=== PATIENT | female | born 1990 | race Caucasian/White ===

== ENCOUNTER 2016-02-10 00:30 | Emergency (ER) | payer OTHER ==
[~2016-02-10 00:30] MED LIST: IBUP600T26 PO; VICO5TAB PO
--- NOTE | 2016-02-10 02:58 | EDDOCDS ---
Nurse's Notes [facility] Name: Jillian Reyes Age: 25 yrs Sex: Female : 1990 Arrival Date: 02/10/2016 Time: 00:30 Bed I3 / M3 Private MD: Carlos Palencia M. Diagnosis: Contusion of lower back and pelvis Presentation: 02/09 00:35 Presenting complaint: Patient states: she was carrying laundry downstairs legs felt cz weak and pt fell injuring right hip. Adult Sepsis Screening: The patient does not have new or worsening altered mentation. Patient's respiratory rate is less than 22. Systolic blood pressure is greater than 100. Patient has a qSOFA score of 0- Negative Sepsis Screen. Suicide/Homicide risk assessment- the patient denies having any suicidal and/or homicidal ideations and does not present with any other emotional, behavioral or mental health complaints. 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 Transition of care: patient was not received from another setting of care. 00:35 Acuity: BK Level 4 cz 00:35 Method Of Arrival: Walkin/Carried/Asstd cz Triage Assessment: 00:38 General: Appears uncomfortable. Pain: Location: right hip Pain currently is 7 out of 10 cz on a pain scale. HIV screening NA for this visit Offered previously. 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 Cymbalta 60 mg Oral cpDR once daily 2. trazodone 50 mg Oral tab nightly 3. lorazepam 1 mg Oral tab once daily 4. control 5. gabapentin 300 mg Oral tab every 8 hours - PMHx: Anxiety; Depression; Migraine Headaches; - PSHx: ; - Social history: Smoking status: Patient uses tobacco products, light tobacco smoker. No barriers to communication noted, The patient speaks fluent Honduran, Speaks appropriately for age. - Family history: Not pertinent. - : The pt / caregiver states he / she is not on anticoagulants. Home medication list is obtained from the patient. - Exposure Risk Screening:: None identified. Screenin:07 Screening information is obtained from the patient. Fall risk: No risks identified. lf1 Assistance ADL's: requires no assistance with activities of daily living. Abuse/DV Screen: The patient / caregiver reports he/she is: not in a situation that causes fear, pain or injury. Nutritional screening: No deficits noted. Advance Directives: Currently, there is no health care proxy. home support is adequate. Assessment: 02:07 General: Appears in no apparent distress, comfortable, Behavior is cooperative. Pain: lf1 Location: pelvis and right hip Pain currently is 7 out of 10 on a pain scale. Neurological: Level of Consciousness is awake, alert, Oriented to person, place, time. Neurological: Reports weakness. EENT: No deficits noted. Respiratory: Respiratory effort is even, unlabored. GI: Denies nausea, vomiting. Derm: Skin is normal. Musculoskeletal: Range of motion Reports pain in right leg and pelvis. Injury Description: pt fell. 02:10 General: Pt reports recent increase in Cymbalta, states about 1 week after increase and lf1 increasing frequency of Trazadone for sleep she began to have increased feelings of "spaghettiness" in her legs. 02:52 General: Appears in no apparent distress, comfortable, Behavior is cooperative. lf1 General: Pt ambulated from department without difficulty or assistance. Pain: Location: right leg Pain currently is 6 out of 10 on a pain scale. Neurological: Level of Consciousness is awake, alert. EENT: No deficits noted. Cardiovascular: No deficits noted. Respiratory: Respiratory effort is even, unlabored. GI: Denies nausea, vomiting. Derm: Skin is normal. Vital Signs: 00:38 BP 135 / 85; Pulse 96; Resp 16; Temp 99(T); Pulse Ox 96% ; Weight 87.54 kg; Height 5 cz ft. 2 in. (157.48 cm); 02:20 BP 130 / 81; Pulse 78; Resp 16; Temp 98.2(TE); Pulse Ox 98% on R/A; Pain 6/10; lf1 00:38 Body Mass Index 35.30 (87.54 kg, 157.48 cm) Vitals: 00:38 Log In Time: February 10, 2016 at 00:31. ED Course: 00:31 Patient visited by Christina Reyez. [facility] 00:31 Carlos Palencia is Private Physician. [facility] 00:31 Patient moved to Waiting lja 00:33 Patient moved to Triage 1 cz 00:36 Triage Initiated cz 00:40 Patient moved to MTA Wait cz 01:30 Patient moved to I3 / M3 cln 02:07 The patient / caregiver is instructed regarding the plan of care and ED course. lf1 02:20 No IV's were initiated during this patient's visit. No procedures done that require lf1 assistance. 02:38 Higinio Vera PA is PHCP. mo1 02:38 Barry Martínez MD is Attending Physician. mo1 02:46 Patient visited by Higinio Vera PA. mo1 02:46 Carlos Palencia is Referral Physician. mo1 02:56 [facility] Payment Agreement was scanned into [employer] and attached to record. hs2 Order Results: There are currently no results for this order. Outcome: 02:20 Discharge Assessment: Patient awake, alert and oriented x 3. No cognitive and/or lf1 functional deficits noted. Patient verbalized understanding of disposition instructions. Patient awake and alert. Oriented to person, place and time. Patient verbalized understanding of disposition instructions. Patient has no functional deficits. patient administered narcotics - no. The following High Risk Discharge criteria are identified: None. Discharged to home ambulatory. Condition: unchanged. Discharge instructions given to patient, Instructed on discharge instructions, follow up and referral plans. medication usage, Demonstrated understanding of instructions, medications, Pt was receptive of discharge instructions/ teaching. No special radiology studies were completed. Property :Personal belongings accompany Pt. 02:46 Discharge ordered by Provider. mo1 02:57 Patient left the ED. lf1 Signatures: Zechariah Lucia RN RN cz Ford, Lisa, RN RN lf1 Higinio Vera PA PA mo1 Christina Reyez Hillary, Reg Reg hs2 Brittny, Dana, MAT ROLLER MAT ROLLER cln MTDD
--- NOTE | 2016-02-10 02:58 | EDDOCDS ---
Physician Documentation [facility] Name: Jillian Reyes Age: 25 yrs Sex: Female : 1990 Arrival Date: 02/10/2016 Time: 00:30 Bed I3 / M3 Private MD: Carlos Palencia M. Disposition: 02/10/16 02:46 Discharged to Home/Self Care. Impression: Contusion of lower back and pelvis. - Condition is Stable. - Discharge Instructions: Back Pain, Adult, Contusion. - Medication Reconciliation, Local Pharmacy Hours form. - Follow up: Carlos Palencia; When: Call to arrange an appointment; Reason: Recheck today's complaints, Continuance of care. - Problem is new. - Symptoms are unchanged. Historical: - Allergies: Latex; - Home Meds: 1. Cymbalta 60 mg Oral cpDR once daily 2. trazodone 50 mg Oral tab nightly 3. lorazepam 1 mg Oral tab once daily 4. control 5. gabapentin 300 mg Oral tab every 8 hours - PMHx: Anxiety; Depression; Migraine Headaches; - PSHx: ; - Social history: Smoking status: Patient uses tobacco products, light tobacco smoker. No barriers to communication noted, The patient speaks fluent Hebrew, Speaks appropriately for age. - Family history: Not pertinent. - : The pt / caregiver states he / she is not on anticoagulants. Home medication list is obtained from the patient. - Exposure Risk Screening:: None identified. 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 2 in. (157.48 cm); 02:20 BP 130 / 81; Pulse 78; Resp 16; Temp 98.2(TE); Pulse Ox 98% on R/A; Pain 6/10; lf1 00:38 Body Mass Index 35.30 (87.54 kg, 157.48 cm) cz MDM: 02:55 Financial registration complete. hs2 02:56 [facility] Payment Agreement was scanned into [email or web address] and attached to record. hs2 Signatures: Zechariah Lucia RN RN cz Zabala,Christina,RN RN lf1 Higinio Vera PA PA mo1 Tierney Alan, Reg Reg hs2 The chart was reviewed and I authenticate all verbal orders and agree with the evaluation and treatment provided.Attachments: 02:56 [facility] Payment Agreement hs2 SAWYERD
--- NOTE | 2016-02-12 03:58 | EDDOCDS ---
Nurse's Notes [facility] Name: Jillian Reyes Age: 25 yrs Sex: Female : 1990 Arrival Date: 02/10/2016 Time: 00:30 Bed I3 / M3 Private MD: Carlos Palencia M. Diagnosis: Contusion of lower back and pelvis Presentation: 02/09 00:35 Presenting complaint: Patient states: she was carrying laundry downstairs legs felt cz weak and pt fell injuring right hip. Adult Sepsis Screening: The patient does not have new or worsening altered mentation. Patient's respiratory rate is less than 22. Systolic blood pressure is greater than 100. Patient has a qSOFA score of 0- Negative Sepsis Screen. Suicide/Homicide risk assessment- the patient denies having any suicidal and/or homicidal ideations and does not present with any other emotional, behavioral or mental health complaints. Status: Patient is not a director water and waste services or dependent. Transition of care: patient was not received from another setting of care. 00:35 Acuity: BK Level 4 cz 00:35 Method Of Arrival: Walkin/Carried/Asstd cz Triage Assessment: 00:38 General: Appears uncomfortable. Pain: Location: right hip Pain currently is 7 out of 10 cz on a pain scale. HIV screening NA for this visit Offered previously. 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 Cymbalta 60 mg Oral cpDR once daily 2. trazodone 50 mg Oral tab nightly 3. lorazepam 1 mg Oral tab once daily 4. control 5. gabapentin 300 mg Oral tab every 8 hours - PMHx: Anxiety; Depression; Migraine Headaches; - PSHx: ; - Social history: Smoking status: Patient uses tobacco products, light tobacco smoker. No barriers to communication noted, The patient speaks fluent Tuvaluan, Speaks appropriately for age. - Family history: Not pertinent. - : The pt / caregiver states he / she is not on anticoagulants. Home medication list is obtained from the patient. - Exposure Risk Screening:: None identified. Screenin:07 Screening information is obtained from the patient. Fall risk: No risks identified. lf1 Assistance ADL's: requires no assistance with activities of daily living. Abuse/DV Screen: The patient / caregiver reports he/she is: not in a situation that causes fear, pain or injury. Nutritional screening: No deficits noted. Advance Directives: Currently, there is no health care proxy. home support is adequate. Assessment: 02:07 General: Appears in no apparent distress, comfortable, Behavior is cooperative. Pain: lf1 Location: pelvis and right hip Pain currently is 7 out of 10 on a pain scale. Neurological: Level of Consciousness is awake, alert, Oriented to person, place, time. Neurological: Reports weakness. EENT: No deficits noted. Respiratory: Respiratory effort is even, unlabored. GI: Denies nausea, vomiting. Derm: Skin is normal. Musculoskeletal: Range of motion Reports pain in right leg and pelvis. Injury Description: pt fell. 02:10 General: Pt reports recent increase in Cymbalta, states about 1 week after increase and lf1 increasing frequency of Trazadone for sleep she began to have increased feelings of "spaghettiness" in her legs. 02:52 General: Appears in no apparent distress, comfortable, Behavior is cooperative. lf1 General: Pt ambulated from department without difficulty or assistance. Pain: Location: right leg Pain currently is 6 out of 10 on a pain scale. Neurological: Level of Consciousness is awake, alert. EENT: No deficits noted. Cardiovascular: No deficits noted. Respiratory: Respiratory effort is even, unlabored. GI: Denies nausea, vomiting. Derm: Skin is normal. Vital Signs: 00:38 BP 135 / 85; Pulse 96; Resp 16; Temp 99(T); Pulse Ox 96% ; Weight 87.54 kg; Height 5 cz ft. 2 in. (157.48 cm); 02:20 BP 130 / 81; Pulse 78; Resp 16; Temp 98.2(TE); Pulse Ox 98% on R/A; Pain 6/10; lf1 00:38 Body Mass Index 35.30 (87.54 kg, 157.48 cm) Vitals: 00:38 Log In Time: February 10, 2016 at 00:31. ED Course: 00:31 Patient visited by Christina Reyez. [facility] 00:31 Carlos Palencia is Private Physician. [facility] 00:31 Patient moved to Waiting lja 00:33 Patient moved to Triage 1 cz 00:36 Triage Initiated cz 00:40 Patient moved to MTA Wait cz 01:30 Patient moved to I3 / M3 cln 02:07 The patient / caregiver is instructed regarding the plan of care and ED course. lf1 02:20 No IV's were initiated during this patient's visit. No procedures done that require lf1 assistance. 02:38 Higinio Vera PA is PHCP. mo1 02:38 Barry Martínez MD is Attending Physician. mo1 02:46 Patient visited by Higinio Vera PA. mo1 02:46 Carlos Palencia is Referral Physician. mo1 02:56 [facility] Payment Agreement was scanned into [employer] and attached to record. hs2 07:32 T-Sheet-- Draft Copy was scanned into [employer] and attached to record. gb Order Results: There are currently no results for this order. Outcome: 02:20 Discharge Assessment: Patient awake, alert and oriented x 3. No cognitive and/or lf1 functional deficits noted. Patient verbalized understanding of disposition instructions. Patient awake and alert. Oriented to person, place and time. Patient verbalized understanding of disposition instructions. Patient has no functional deficits. patient administered narcotics - no. The following High Risk Discharge criteria are identified: None. Discharged to home ambulatory. Condition: unchanged. Discharge instructions given to patient, Instructed on discharge instructions, follow up and referral plans. medication usage, Demonstrated understanding of instructions, medications, Pt was receptive of discharge instructions/ teaching. No special radiology studies were completed. Property :Personal belongings accompany Pt. 02:46 Discharge ordered by Provider. mo1 02:57 Patient left the ED. lf1 Signatures: Zechariah Lucia RN RN cz Adriana Sanchez, Reg Reg gb Christina Zabala RN RN lf1 Higinio Vera PA PA mo1 Christina Reyez Hillary, Reg Reg hs2 Brittny, Dana, ORGAN TEACHER ORGAN TEACHER cln Chart Complete MTDD
--- NOTE | 2016-02-12 03:58 | EDDOCDS ---
Physician Documentation [facility] Name: Jillian Reyes Age: 25 yrs Sex: Female : 1990 Arrival Date: 02/10/2016 Time: 00:30 Bed I3 / M3 Private MD: Carlos Palencia M. Disposition: 02/10/16 02:46 Discharged to Home/Self Care. Impression: Contusion of lower back and pelvis. - Condition is Stable. - Discharge Instructions: Back Pain, Adult, Contusion. - Medication Reconciliation, Local Pharmacy Hours form. - Follow up: Carlos Palencia; When: Call to arrange an appointment; Reason: Recheck today's complaints, Continuance of care. - Problem is new. - Symptoms are unchanged. Historical: - Allergies: Latex; - Home Meds: 1. Cymbalta 60 mg Oral cpDR once daily 2. trazodone 50 mg Oral tab nightly 3. lorazepam 1 mg Oral tab once daily 4. control 5. gabapentin 300 mg Oral tab every 8 hours - PMHx: Anxiety; Depression; Migraine Headaches; - PSHx: ; - Social history: Smoking status: Patient uses tobacco products, light tobacco smoker. No barriers to communication noted, The patient speaks fluent Kazakh, Speaks appropriately for age. - Family history: Not pertinent. - : The pt / caregiver states he / she is not on anticoagulants. Home medication list is obtained from the patient. - Exposure Risk Screening:: None identified. 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 2 in. (157.48 cm); 02:20 BP 130 / 81; Pulse 78; Resp 16; Temp 98.2(TE); Pulse Ox 98% on R/A; Pain 6/10; lf1 00:38 Body Mass Index 35.30 (87.54 kg, 157.48 cm) cz MDM: 02:55 Financial registration complete. hs2 02:56 [facility] Payment Agreement was scanned into [employer] and attached to record. hs2 07:32 T-Sheet-- Draft Copy was scanned into [employer] and attached to record. gb Signatures: Zechariah Lucia, RN RN cz Adriana Sanchez, Reg Reg gb Christina Zabala RN RN lf1 Higinio Vera PA PA mo1 Tierney Alan, Reg Reg hs2 The chart was reviewed and I authenticate all verbal orders and agree with the evaluation and treatment provided.Attachments: 02:56 [facility] Payment Agreement hs2 07:32 T-Sheet-- Draft Copy gb Chart Complete MTDD
--- NOTE | 2016-02-12 03:58 | EDDOCDS ---
Physician Documentation [facility] Name: Jillian Reyes Age: 25 yrs Sex: Female : 1990 Arrival Date: 02/10/2016 Time: 00:30 Bed I3 / M3 Private MD: Carlos Palencia M. Disposition: 02/10/16 02:46 Discharged to Home/Self Care. Impression: Contusion of lower back and pelvis. - Condition is Stable. - Discharge Instructions: Back Pain, Adult, Contusion. - Medication Reconciliation, Local Pharmacy Hours form. - Follow up: Carlos Palencia; When: Call to arrange an appointment; Reason: Recheck today's complaints, Continuance of care. - Problem is new. - Symptoms are unchanged. Historical: - Allergies: Latex; - Home Meds: 1. Cymbalta 60 mg Oral cpDR once daily 2. trazodone 50 mg Oral tab nightly 3. lorazepam 1 mg Oral tab once daily 4. control 5. gabapentin 300 mg Oral tab every 8 hours - PMHx: Anxiety; Depression; Migraine Headaches; - PSHx: ; - Social history: Smoking status: Patient uses tobacco products, light tobacco smoker. No barriers to communication noted, The patient speaks fluent Turkish, Speaks appropriately for age. - Family history: Not pertinent. - : The pt / caregiver states he / she is not on anticoagulants. Home medication list is obtained from the patient. - Exposure Risk Screening:: None identified. 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 2 in. (157.48 cm); 02:20 BP 130 / 81; Pulse 78; Resp 16; Temp 98.2(TE); Pulse Ox 98% on R/A; Pain 6/10; lf1 00:38 Body Mass Index 35.30 (87.54 kg, 157.48 cm) cz MDM: 02:55 Financial registration complete. hs2 02:56 [facility] Payment Agreement was scanned into [employer] and attached to record. hs2 07:32 T-Sheet-- Draft Copy was scanned into [employer] and attached to record. gb Signatures: Zechariah Lucia, RN RN cz Adriana Sanchez, Reg Reg gb Christina Zabala RN RN lf1 Higinio Vera PA PA mo1 Tierney Alan, Reg Reg hs2 The chart was reviewed and I authenticate all verbal orders and agree with the evaluation and treatment provided.Attachments: 02:56 [facility] Payment Agreement hs2 07:32 T-Sheet-- Draft Copy gb Chart Complete MTDD
== END 2016-02-10 02:57 | disposition home or self-care (01) ==
LOC: M ED 00:30
DX: S30.0XXA Contusion of lower back and pelvis, initial encounter (principal); W10.9XXA Fall (on) (from) unspecified stairs and steps, initial encounter; Y92.019 Unspecified place in single-family (private) house as the place of occurrence of the external cause; Y93.89 Activity, other specified; Y99.8 Other external cause status; F41.9 Anxiety disorder, unspecified; F32.9 Major depressive disorder, single episode, unspecified; G43.909 Migraine, unspecified, not intractable, without status migrainosus; F17.210 Nicotine dependence, cigarettes, uncomplicated; Z79.3 Long term (current) use of hormonal contraceptives; Z79.899 Other long term (current) drug therapy; Z91.040 Latex allergy status

== ENCOUNTER 2016-02-20 22:00 | Emergency (ER) | payer OTHER ==
[2016-02-20] MEDS ORDERED: traMADol 50 MG TAB As Ordered ONE (23:25)
--- NOTE | 2016-02-20 23:37 | EDDOCDS ---
Physician Documentation [facility] Name: Jillian Reyes Age: 25 yrs Sex: Female : 1990 Arrival Date: 02/20/2016 Time: 22:00 Bed Triage 1 Private MD: BARNEY Weiner Disposition: 02/20/16 23:30 Discharged to Home/Self Care. Impression: Low back pain, Radiculopathy, lumbosacral region. - Condition is Stable. - Discharge Instructions: Back Pain, Adult, Lumbosacral Radiculopathy. - Prescriptions for Tramadol 50 mg Oral Tablet - take 1 tablet by ORAL route 4 times per day As needed MDD: 4 tabs; 20 tablet. - Medication Reconciliation, Local Pharmacy Hours form. - Follow up: BARNEY Weiner; When: Call to arrange an appointment; Reason: Recheck today's complaints, Continuance of care. - Problem is an acute exacerbation. - Symptoms are unchanged. Historical: - Allergies: Latex; - Home Meds: 1. control 2. Cymbalta 60 mg Oral cpDR once daily 3. gabapentin 300 mg Oral tab every 8 hours 4. lorazepam 1 mg Oral tab once daily 5. trazodone 50 mg Oral tab nightly - PMHx: Anxiety; Depression; Migraine Headaches; - PSHx: ; - Social history: Smoking status: Patient uses tobacco products, heavy tobacco smoker. No barriers to communication noted, The patient speaks fluent Sami, Speaks appropriately for age. - Family history: Not pertinent. - : The pt / caregiver states he / she is not on anticoagulants. Home medication list is obtained from the patient. - Exposure Risk Screening:: None identified. 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 2 in. (157.48 cm) (R); 23:35 BP 143 / 88; Pulse 76; Resp 18; Temp 97.6; Pulse Ox 98% on R/A; Pain 3/10; jmb 22:01 Body Mass Index 35.30 (87.54 kg, 157.48 cm) dd6 MDM: 23:24 traMADol 50 mg PO once ordered. mo1 Administered Medications: 23:23 CANCELLED (Other Intervention Used): Gabapentin 300 mg PO once mo1 23:26 Drug: traMADol 50 mg [tramadol 50 mg tablet (1 tabs)] Route: PO; jarrod Signatures: Higinio Vera PA PA mo1 Godwin Holman RN RN jarrod The chart was reviewed and I authenticate all verbal orders and agree with the evaluation and treatment provided.Corrections: (The following items were deleted from the chart) 23:23 23:23 Gabapentin 300 mg PO once ordered. mo1 mo1 MTDD
--- NOTE | 2016-02-20 23:37 | EDDOCDS ---
Nurse's Notes [facility] Name: Jillian Reyes Age: 25 yrs Sex: Female : 1990 Arrival Date: 02/20/2016 Time: 22:00 Bed Triage 1 Private MD: BARNEY Weiner Diagnosis: Low back pain;Radiculopathy, lumbosacral region Presentation: 02/19 22:03 Presenting complaint: Patient states: Patient reports that has issues with nerves and jmb currently working with provider to address. Patient stated that her legs feel like they are being crushed by a truck. Acute neurological deficits are not present. Mechanism of Injury: No Mechanism of Injury. Adult Sepsis Screening: Patient's respiratory rate is less than 22. Systolic blood pressure is greater than 100. Patient has a qSOFA score of 0- Negative Sepsis Screen. Suicide/Homicide risk assessment- the patient denies having any suicidal and/or homicidal ideations and does not present with any other emotional, behavioral or mental health complaints. Status: Patient is not a electronic video games servicer or dependent. Transition of care: patient was not received from another setting of care. 22:03 Acuity: BK Level 4 b 22:03 Method Of Arrival: Walkin/Carried/Asstd b 22:05 Presenting complaint: Patient texting on cell phone whole time during triage. [facility] Triage Assessment: 22:04 General: Appears in no apparent distress, Behavior is appropriate for age, cooperative. b Pain: Location: right leg and left leg Pain currently is 8 out of 10 on a pain scale. HIV screening NA for this visit Offered previously. Neurological: Level of Consciousness is awake, alert, obeys commands, Oriented to person, place, time, Speech is normal, Facial symmetry appears normal, Facial symmetry: tongue is midline. Respiratory: Airway is patent Respiratory effort is even, unlabored, Respiratory pattern is regular, symmetrical. Derm: Skin is pink, warm & dry. Musculoskeletal: Range of motion intact in all extremities. 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 control 2. Cymbalta 60 mg Oral cpDR once daily 3. gabapentin 300 mg Oral tab every 8 hours 4. lorazepam 1 mg Oral tab once daily 5. trazodone 50 mg Oral tab nightly - PMHx: Anxiety; Depression; Migraine Headaches; - PSHx: ; - Social history: Smoking status: Patient uses tobacco products, heavy tobacco smoker. No barriers to communication noted, The patient speaks fluent Turkish, Speaks appropriately for age. - Family history: Not pertinent. - : The pt / caregiver states he / she is not on anticoagulants. Home medication list is obtained from the patient. - Exposure Risk Screening:: None identified. Screenin:32 Screening information is obtained from the patient. Fall risk: No risks identified. jmb Assistance ADL's: requires no assistance with activities of daily living. Abuse/DV Screen: The patient / caregiver reports he/she is: not in a situation that causes fear, pain or injury. Nutritional screening: No deficits noted. Advance Directives: Currently, there is no health care proxy. There is no active DNR order. There is no living will. There is no Power of 3Rd Mate. home support is adequate. Assessment: 23:32 General: Patient instructed on discharge instructions. Patient asked if there were any b questions regarding discharge, patient stated no. Patient signed discharge instructions. Patient discharged in stable condition. . Vital Signs: 22:01 BP 162 / 92; Pulse 101; Resp 18; Temp 97.3(O); Pulse Ox 100% on R/A; Weight 87.54 kg dd6 (R); Height 5 ft. 2 in. (157.48 cm) (R); 23:35 BP 143 / 88; Pulse 76; Resp 18; Temp 97.6; Pulse Ox 98% on R/A; Pain 3/10; jmb 22:01 Body Mass Index 35.30 (87.54 kg, 157.48 cm) dd6 Vitals: 22:01 Log In Time: February 20, 2016 at 21:58. dd6 ED Course: 22:01 Patient visited by Tomy Kimball PCA. dd6 22:01 BARNEY Weiner is Private Physician. dd6 22:01 Patient moved to Waiting dd6 22:02 Patient moved to Pre RCE dd6 22:04 Triage Initiated jmb 23:09 Higinio Vera PA is PHCP. mo1 23:09 Elie Bocanegra DO is Attending Physician. mo1 23:09 Patient moved to Triage 1 jmb 23:13 Patient visited by Higinio Vera PA. mo1 23:29 Husam [facility] is Referral Physician. mo1 23:32 The patient / caregiver is instructed regarding the plan of care and ED course. jmb 23:32 No IV's were initiated during this patient's visit. No procedures done that require jmb assistance. Administered Medications: 23:23 CANCELLED (Other Intervention Used): Gabapentin 300 mg PO once mo1 23:26 Drug: traMADol 50 mg [tramadol 50 mg tablet (1 tabs)] Route: PO; jmb Order Results: There are currently no results for this order. Outcome: 23:30 Discharge ordered by Provider. mo1 23:32 Discharge Assessment: Patient awake, alert and oriented x 3. No cognitive and/or jmb functional deficits noted. Patient verbalized understanding of disposition instructions. Patient awake and alert. obeys commands, Oriented to person, place and time. Patient verbalized understanding of disposition instructions. Patient has no functional deficits. patient administered narcotics - no. The following High Risk Discharge criteria are identified: None. Discharged to home ambulatory. Condition: stable. Discharge instructions given to patient, Instructed on discharge instructions, follow up and referral plans. medication usage, Demonstrated understanding of instructions, medications, Pt was receptive of discharge instructions/ teaching. Prescriptions given X 1. No special radiology studies were completed. Property sent home with patient. 23:36 Patient left the ED. jarrod Signatures: Tomy Kimball, STAFF AIR TACTICAL OFFICER STAFF AIR TACTICAL OFFICER dd6 Higinio Vera PA PA mo1 Godwin Holman,RN RN jarrod MTDD
--- NOTE | 2016-02-23 00:37 | EDDOCDS ---
Physician Documentation [facility] Name: Jillian Reyes Age: 25 yrs Sex: Female : 1990 Arrival Date: 02/20/2016 Time: 22:00 Bed Triage 1 Private MD: BARNEY Weiner Disposition: 02/20/16 23:30 Discharged to Home/Self Care. Impression: Low back pain, Radiculopathy, lumbosacral region. - Condition is Stable. - Discharge Instructions: Back Pain, Adult, Lumbosacral Radiculopathy. - Prescriptions for Tramadol 50 mg Oral Tablet - take 1 tablet by ORAL route 4 times per day As needed MDD: 4 tabs; 20 tablet. - Medication Reconciliation, Local Pharmacy Hours form. - Follow up: BARNEY Weiner; When: Call to arrange an appointment; Reason: Recheck today's complaints, Continuance of care. - Problem is an acute exacerbation. - Symptoms are unchanged. Historical: - Allergies: Latex; - Home Meds: 1. control 2. Cymbalta 60 mg Oral cpDR once daily 3. gabapentin 300 mg Oral tab every 8 hours 4. lorazepam 1 mg Oral tab once daily 5. trazodone 50 mg Oral tab nightly - PMHx: Anxiety; Depression; Migraine Headaches; - PSHx: ; - Social history: Smoking status: Patient uses tobacco products, heavy tobacco smoker. No barriers to communication noted, The patient speaks fluent Belarusian, Speaks appropriately for age. - Family history: Not pertinent. - : The pt / caregiver states he / she is not on anticoagulants. Home medication list is obtained from the patient. - Exposure Risk Screening:: None identified. 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 2 in. (157.48 cm) (R); 23:35 BP 143 / 88; Pulse 76; Resp 18; Temp 97.6; Pulse Ox 98% on R/A; Pain 3/10; jmb 22:01 Body Mass Index 35.30 (87.54 kg, 157.48 cm) dd6 MDM: 23:24 traMADol 50 mg PO once ordered. mo1 23:39 Financial registration complete. zo 23:40 [facility] Payment Agreement was scanned into [employer] and attached to record. zo 02/20 09:26 T-Sheet-- Draft Copy was scanned into [employer] and attached to record. gb Administered Medications: 02/19 23:23 CANCELLED (Other Intervention Used): Gabapentin 300 mg PO once mo1 23:26 Drug: traMADol 50 mg [tramadol 50 mg tablet (1 tabs)] Route: PO; tanyab Signatures: Adriana Sanchez, Reg Reg darline Mosqueda, Higinio Rosario PA PA mo1 Godwin Holman RN RN jarrod The chart was reviewed and I authenticate all verbal orders and agree with the evaluation and treatment provided.Corrections: (The following items were deleted from the chart) 23:23 23:23 Gabapentin 300 mg PO once ordered. mo1 mo1 Attachments: 23:40 [facility] Payment Agreement zo 02/20 09:26 T-Sheet-- Draft Copy gb Chart Complete MTDD
--- NOTE | 2016-02-23 00:37 | EDDOCDS ---
Physician Documentation [facility] Name: Jillian Reyes Age: 25 yrs Sex: Female : 1990 Arrival Date: 02/20/2016 Time: 22:00 Bed Triage 1 Private MD: BARNEY Weiner Disposition: 02/20/16 23:30 Discharged to Home/Self Care. Impression: Low back pain, Radiculopathy, lumbosacral region. - Condition is Stable. - Discharge Instructions: Back Pain, Adult, Lumbosacral Radiculopathy. - Prescriptions for Tramadol 50 mg Oral Tablet - take 1 tablet by ORAL route 4 times per day As needed MDD: 4 tabs; 20 tablet. - Medication Reconciliation, Local Pharmacy Hours form. - Follow up: BARNEY Weiner; When: Call to arrange an appointment; Reason: Recheck today's complaints, Continuance of care. - Problem is an acute exacerbation. - Symptoms are unchanged. Historical: - Allergies: Latex; - Home Meds: 1. control 2. Cymbalta 60 mg Oral cpDR once daily 3. gabapentin 300 mg Oral tab every 8 hours 4. lorazepam 1 mg Oral tab once daily 5. trazodone 50 mg Oral tab nightly - PMHx: Anxiety; Depression; Migraine Headaches; - PSHx: ; - Social history: Smoking status: Patient uses tobacco products, heavy tobacco smoker. No barriers to communication noted, The patient speaks fluent Korean, Speaks appropriately for age. - Family history: Not pertinent. - : The pt / caregiver states he / she is not on anticoagulants. Home medication list is obtained from the patient. - Exposure Risk Screening:: None identified. 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 2 in. (157.48 cm) (R); 23:35 BP 143 / 88; Pulse 76; Resp 18; Temp 97.6; Pulse Ox 98% on R/A; Pain 3/10; jmb 22:01 Body Mass Index 35.30 (87.54 kg, 157.48 cm) dd6 MDM: 23:24 traMADol 50 mg PO once ordered. mo1 23:39 Financial registration complete. zo 23:40 [facility] Payment Agreement was scanned into [employer] and attached to record. zo 02/20 09:26 T-Sheet-- Draft Copy was scanned into [employer] and attached to record. gb Administered Medications: 02/19 23:23 CANCELLED (Other Intervention Used): Gabapentin 300 mg PO once mo1 23:26 Drug: traMADol 50 mg [tramadol 50 mg tablet (1 tabs)] Route: PO; tanyab Signatures: Adriana Sanchez, Reg Reg darline Mosqueda, Higinio Rosario PA PA mo1 Godwin Holman RN RN jarrod The chart was reviewed and I authenticate all verbal orders and agree with the evaluation and treatment provided.Corrections: (The following items were deleted from the chart) 23:23 23:23 Gabapentin 300 mg PO once ordered. mo1 mo1 Attachments: 23:40 [facility] Payment Agreement zo 02/20 09:26 T-Sheet-- Draft Copy gb Chart Complete MTDD
--- NOTE | 2016-02-23 00:37 | EDDOCDS ---
Nurse's Notes [facility] Name: Jillian Reyes Age: 25 yrs Sex: Female : 1990 Arrival Date: 02/20/2016 Time: 22:00 Bed Triage 1 Private MD: BARNEY Weiner Diagnosis: Low back pain;Radiculopathy, lumbosacral region Presentation: 02/19 22:03 Presenting complaint: Patient states: Patient reports that has issues with nerves and jmb currently working with provider to address. Patient stated that her legs feel like they are being crushed by a truck. Acute neurological deficits are not present. Mechanism of Injury: No Mechanism of Injury. Adult Sepsis Screening: Patient's respiratory rate is less than 22. Systolic blood pressure is greater than 100. Patient has a qSOFA score of 0- Negative Sepsis Screen. Suicide/Homicide risk assessment- the patient denies having any suicidal and/or homicidal ideations and does not present with any other emotional, behavioral or mental health complaints. Status: Patient is not a room service waiter or dependent. Transition of care: patient was not received from another setting of care. 22:03 Acuity: BK Level 4 b 22:03 Method Of Arrival: Walkin/Carried/Asstd b 22:05 Presenting complaint: Patient texting on cell phone whole time during triage. [id number] Triage Assessment: 22:04 General: Appears in no apparent distress, Behavior is appropriate for age, cooperative. b Pain: Location: right leg and left leg Pain currently is 8 out of 10 on a pain scale. HIV screening NA for this visit Offered previously. Neurological: Level of Consciousness is awake, alert, obeys commands, Oriented to person, place, time, Speech is normal, Facial symmetry appears normal, Facial symmetry: tongue is midline. Respiratory: Airway is patent Respiratory effort is even, unlabored, Respiratory pattern is regular, symmetrical. Derm: Skin is pink, warm & dry. Musculoskeletal: Range of motion intact in all extremities. 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 control 2. Cymbalta 60 mg Oral cpDR once daily 3. gabapentin 300 mg Oral tab every 8 hours 4. lorazepam 1 mg Oral tab once daily 5. trazodone 50 mg Oral tab nightly - PMHx: Anxiety; Depression; Migraine Headaches; - PSHx: ; - Social history: Smoking status: Patient uses tobacco products, heavy tobacco smoker. No barriers to communication noted, The patient speaks fluent Amharic, Speaks appropriately for age. - Family history: Not pertinent. - : The pt / caregiver states he / she is not on anticoagulants. Home medication list is obtained from the patient. - Exposure Risk Screening:: None identified. Screenin:32 Screening information is obtained from the patient. Fall risk: No risks identified. jmb Assistance ADL's: requires no assistance with activities of daily living. Abuse/DV Screen: The patient / caregiver reports he/she is: not in a situation that causes fear, pain or injury. Nutritional screening: No deficits noted. Advance Directives: Currently, there is no health care proxy. There is no active DNR order. There is no living will. There is no Power of Scale And Skip Car Operator. home support is adequate. Assessment: 23:32 General: Patient instructed on discharge instructions. Patient asked if there were any b questions regarding discharge, patient stated no. Patient signed discharge instructions. Patient discharged in stable condition. . Vital Signs: 22:01 BP 162 / 92; Pulse 101; Resp 18; Temp 97.3(O); Pulse Ox 100% on R/A; Weight 87.54 kg dd6 (R); Height 5 ft. 2 in. (157.48 cm) (R); 23:35 BP 143 / 88; Pulse 76; Resp 18; Temp 97.6; Pulse Ox 98% on R/A; Pain 3/10; jmb 22:01 Body Mass Index 35.30 (87.54 kg, 157.48 cm) dd6 Vitals: 22:01 Log In Time: February 20, 2016 at 21:58. dd6 ED Course: 22:01 Patient visited by Tomy Kimball PCA. dd6 22:01 BARNEY Weiner is Private Physician. dd6 22:01 Patient moved to Waiting dd6 22:02 Patient moved to Pre RCE dd6 22:04 Triage Initiated jmb 23:09 Higinio Vera PA is PHCP. mo1 23:09 Elie Bocanegra DO is Attending Physician. mo1 23:09 Patient moved to Triage 1 jmb 23:13 Patient visited by Higinio Vera PA. mo1 23:29 Husam [facility] is Referral Physician. mo1 23:32 The patient / caregiver is instructed regarding the plan of care and ED course. jmb 23:32 No IV's were initiated during this patient's visit. No procedures done that require jmb assistance. 23:40 [facility] Payment Agreement was scanned into [employer] ( [employer] ) and attached to record. zo 02/20 09:26 T-Sheet-- Draft Copy was scanned into [employer] ( [employer] ) and attached to record. gb Administered Medications: 02/19 23:23 CANCELLED (Other Intervention Used): Gabapentin 300 mg PO once mo1 23:26 Drug: traMADol 50 mg [tramadol 50 mg tablet (1 tabs)] Route: PO; jmb Order Results: There are currently no results for this order. Outcome: 23:30 Discharge ordered by Provider. mo1 23:32 Discharge Assessment: Patient awake, alert and oriented x 3. No cognitive and/or jmb functional deficits noted. Patient verbalized understanding of disposition instructions. Patient awake and alert. obeys commands, Oriented to person, place and time. Patient verbalized understanding of disposition instructions. Patient has no functional deficits. patient administered narcotics - no. The following High Risk Discharge criteria are identified: None. Discharged to home ambulatory. Condition: stable. Discharge instructions given to patient, Instructed on discharge instructions, follow up and referral plans. medication usage, Demonstrated understanding of instructions, medications, Pt was receptive of discharge instructions/ teaching. Prescriptions given X 1. No special radiology studies were completed. Property sent home with patient. 23:36 Patient left the ED. jmb Signatures: Adriana Sanchez, Reg Reg gb Franklin, Tomy Cleary, PAEDIATRIC PHYSIOTHERAPIST PAEDIATRIC PHYSIOTHERAPIST dd6 Higinio Vera PA PA mo1 Godwin Holman,RN RN jarrod Chart Complete MTDD
== END 2016-02-20 23:36 | disposition home or self-care (01) ==
LOC: M ED 22:00
DX: M54.17 Radiculopathy, lumbosacral region (principal); F41.9 Anxiety disorder, unspecified; F32.9 Major depressive disorder, single episode, unspecified; G43.909 Migraine, unspecified, not intractable, without status migrainosus; F17.210 Nicotine dependence, cigarettes, uncomplicated; Z79.3 Long term (current) use of hormonal contraceptives; Z79.899 Other long term (current) drug therapy; Z91.040 Latex allergy status

== ENCOUNTER → 2016-03-02 | Outpatient (CLI) | payer OTHER ==
--- NOTE | 2016-03-03 08:34 | REP ---
MRI LUMBAR SPINE WITHOUT CONTRAST: HISTORY: Back and bilateral leg pain. There is no disc bulge or herniation at the L1-2 through L5-S1 levels. The nerves exit the neural foramina without compression. The conus medullaris is normal in appearance terminating at the level of the L1-2 intervertebral disc. Normal signal intensity is present in the lumbar intervertebral discs and vertebral bodies. IMPRESSION: There is no disc bulge or herniation. Signed by Suman Koroma MD 03/03/2016 08:41 A
== END ==
LOC: M RAD 17:57
PROVIDERS: ATTEND Family Medicine
DX: R29.898 Other symptoms and signs involving the musculoskeletal system (principal)

== ENCOUNTER 2016-03-10 18:44 | Emergency (ER) | payer OTHER ==
[2016-03-10] MEDS ORDERED: METOCLOPRAMIDE INJ 10MG/2ML VIAL (J2765) As Ordered ONE (19:23)
[2016-03-10] MEDS ORDERED: KETOROLAC 30 MG/ML VIAL (J1885) As Ordered ONE (19:23)
[2016-03-10] MEDS ORDERED: diphenhydrAMINE INJ 50MG/ML VIAL (J1200) As Ordered ONE (19:23)
--- NOTE | 2016-03-10 23:31 | EDDOCDS ---
Nurse's Notes [facility] Name: Jillian Reyes Age: 25 yrs Sex: Female : 1990 Arrival Date: 03/10/2016 Time: 18:44 Bed 13 Private MD: Carlos Palencia M. Diagnosis: Migraine without aura, not intractable Presentation: 03/10 18:51 Presenting complaint: Patient states: Migraine BURCH with history of the same. Took jo3 Tylenol and Motrin at home and just keeps getting worse. tried caffeine as well. This patient has no additional risk factors. Adult Sepsis Screening: The patient does not have new or worsening altered mentation. Patient's respiratory rate is less than 22. Systolic blood pressure is greater than 100. Patient has a qSOFA score of 0- Negative Sepsis Screen. Suicide/Homicide risk assessment- the patient denies having any suicidal and/or homicidal ideations and does not present with any other emotional, behavioral or mental health complaints. 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 Transition of care: patient was not received from another setting of care. 18:51 Acuity: BK Level 3 jo3 18:51 Method Of Arrival: Walkin/Carried/Asstd jo3 Triage Assessment: 18:54 Headache History: This patient has a history of headaches and the character of this jo3 headache is like all previous headaches. General: Appears in no apparent distress, Behavior is appropriate for age, cooperative. Pain: Pain currently is 9 out of 10 on a pain scale. HIV screening NA for this visit Offered previously. 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 gabapentin 300 mg Oral tab every 8 hours 2. Cymbalta 60 mg Oral cpDR once daily - PMHx: Anxiety; Depression; Migraine Headaches; - PSHx: ; Tubal ligation; - Social history: Smoking status: Patient uses tobacco products, light tobacco smoker. No barriers to communication noted, The patient speaks fluent Welsh, Speaks appropriately for age. - Family history: Not pertinent. - : The pt / caregiver states he / she is not on anticoagulants. Home medication list is obtained from the patient. - Exposure Risk Screening:: None identified. Screenin:48 Screening information is obtained from the patient. Fall risk: No risks identified. jp6 Assistance ADL's: requires no assistance with activities of daily living. Abuse/DV Screen: The patient / caregiver reports he/she is: not in a situation that causes fear, pain or injury. Nutritional screening: No deficits noted. Advance Directives: Currently, there is no health care proxy. There is no active DNR order. There is no living will. home support is adequate. Assessment: 19:48 Reassessment: Patient appears in no apparent distress at this time. Patient states jp6 symptoms have not improved. General: Appears in no apparent distress, well developed, well nourished, Behavior is appropriate for age, cooperative, pleasant. Pain: Location: face Pain currently is 9 out of 10 on a pain scale. Neurological: Level of Consciousness is awake, alert, Oriented to person, place, time. EENT: No deficits noted. Cardiovascular: No deficits noted. Capillary refill < 3 seconds Heart tones S1 S2 present. Respiratory: No deficits noted. Airway is patent Respiratory effort is even, unlabored, Respiratory pattern is regular, symmetrical, Breath sounds are clear bilaterally. GI: No deficits noted. : No deficits noted. Derm: No deficits noted. Skin is pink, warm & dry. Musculoskeletal: No deficits noted. 21:11 Reassessment: Patient appears in no apparent distress at this time. Patient states jp6 symptoms have improved. General: Appears in no apparent distress, comfortable. Pain: Location: face Pain currently is 2 out of 10 on a pain scale. Neurological: Level of Consciousness is awake, alert, Oriented to person, place, time. Respiratory: Airway is patent Respiratory effort is even, unlabored, Respiratory pattern is regular, symmetrical. Derm: Skin is pink, warm & dry. 22:00 Reassessment: Patient appears in no apparent distress at this time. Patient states jp6 symptoms have improved. Pain: Denies pain. 23:00 Reassessment: Patient appears in no apparent distress at this time. Patient states jp6 symptoms have improved. Pain: Denies pain. Neurological: No deficits noted. Cardiovascular: Capillary refill < 3 seconds. Respiratory: Airway is patent Respiratory effort is even, unlabored, Respiratory pattern is regular, symmetrical. Derm: Skin is pink, warm & dry. Vital Signs: 18:45 BP 147 / 86; Pulse 77; Resp 18 S; Temp 98.3(O); Pulse Ox 100% on R/A; Weight 86.18 kg gr2 (R); Height 5 ft. 2 in. (157.48 cm) (R); Pain 10/10; 21:12 Pain 2/10; jp6 21:12 Pain 2/10; jp6 22:19 BP 113 / 69; Pulse 66; Resp 16; Temp 97.5(O); Pulse Ox 98% on R/A; Pain 0/10; jp6 18:45 Body Mass Index 34.75 (86.18 kg, 157.48 cm) gr2 Vitals: 18:45 Log In Time: March 10, 2016 at 18:45. gr2 ED Course: 18:45 Patient visited by Yadi Echeverria. gr2 18:45 Carlos Palencia is Private Physician. gr2 18:45 Patient moved to Waiting gr2 18:46 Patient visited by Yadi Echeverria. gr2 18:46 Patient moved to Pre RCE gr2 18:53 Triage Initiated jo3 18:54 Patient visited by Ella Malone RN. jo3 19:10 Patient moved to 13 jf3 19:11 Wang Burton DO is Attending Physician. mm11 19:11 Patient visited by Wang Burton DO. mm11 19:19 Patient visited by Wang Burton DO. mm11 19:20 Lana SalazarRN is Primary Nurse. jp6 19:48 The patient / caregiver is instructed regarding the plan of care and ED course. jp6 19:48 Inserted saline lock: 20 gauge in right hand. jp6 20:20 Patient visited by Lana Salazar RN. jp6 20:32 [facility] Payment Agreement was scanned into [employer] and attached to record. zo 21:26 Patient visited by Lana Salazar RN. jp6 22:32 Patient visited by Lana Salazar RN. jp6 23:00 Discontinued lock intact, bleeding controlled, pressure dressing applied, No jp6 redness/swelling at site. No procedures done that require assistance. Administered Medications: 19:45 Drug: ketorolac 30 mg [ketorolac 30 mg/mL (1 mL) injection solution (1 mL)] Route: IVP; jp6 Site: right hand; 21:12 Follow up: Pain 2/10 Adult jp6 19:45 Drug: Metoclopramide 10 mg [metoclopramide 5 mg/mL injection solution] Route: IV; Rate: jp6 40 mg/hr; Infused Over: 15 mins; Site: right hand; 21:13 Follow up: Response: Nausea is resolved jp6 19:45 Drug: diphenhydrAMINE 25 mg [diphenhydramine 50 mg/mL injection solution (0.5 mL)] jp6 Route: IVP; Site: right hand; 21:12 Follow up: Pain 2/10 Adult jp6 19:45 Drug: NS 0.9% 1000 ml [sodium chloride 0.9 % intravenous solution] Route: IV; Rate: jp6 bolus; Site: right hand; 21:12 Follow up: IV Status: Completed infusion; IV Intake: 1000ml jp6 Intake: 21:12 IV: 1000.00ml; Total: 1000.00ml. jp6 Order Results: There are currently no results for this order. Outcome: 22:54 Discharge ordered by Provider. mm11 23:00 Discharge Assessment: Patient awake, alert and oriented x 3. No cognitive and/or jp6 functional deficits noted. Patient verbalized understanding of disposition instructions. patient administered narcotics - no. The following High Risk Discharge criteria are identified: None. Discharged to home ambulatory. Condition: improved. Discharge instructions given to patient, Instructed on discharge instructions, follow up and referral plans. Demonstrated understanding of instructions, Pt was receptive of discharge instructions/ teaching. No special radiology studies were completed. Property sent home with patient. 23:30 Patient left the ED. jp6 Signatures: Ella Malone RN RN Navneet Lujan Matthew, DO DO mm11 Yadi Echeverria gr2 Fredo Jackson RN RN jackie3 Lana Salazar RN RN jp6 MTDD
--- NOTE | 2016-03-10 23:31 | EDDOCDS ---
Physician Documentation [facility] Name: Jillian Reyes Age: 25 yrs Sex: Female : 1990 Arrival Date: 03/10/2016 Time: 18:44 Bed 13 Private MD: Carlos Palencia M. Disposition: 03/10/16 22:54 Discharged to Home/Self Care. Impression: Migraine without aura, not intractable. - Condition is Stable. - Discharge Instructions: Migraine Headache. - Medication Reconciliation, Local Pharmacy Hours form. - Follow up: Private Physician; When: As needed; Reason: Continuance of care. - Problem is an acute exacerbation. - Symptoms have improved. - Notes: FOLLOW UP WITH NEUROLOGY IN [place] PREVIOUSLY ARRANGED Historical: - Allergies: Latex; Tramadol HCl; spiders; - Home Meds: 1. gabapentin 300 mg Oral tab every 8 hours 2. Cymbalta 60 mg Oral cpDR once daily - PMHx: Anxiety; Depression; Migraine Headaches; - PSHx: ; Tubal ligation; - Social history: Smoking status: Patient uses tobacco products, light tobacco smoker. No barriers to communication noted, The patient speaks fluent Nepali, Speaks appropriately for age. - Family history: Not pertinent. - : The pt / caregiver states he / she is not on anticoagulants. Home medication list is obtained from the patient. - Exposure Risk Screening:: None identified. [employer] P[employer]: 03/10 18:54 LMP 02/27/2016 jo3 Vital Signs: 18:45 BP 147 / 86; Pulse 77; Resp 18 S; Temp 98.3(O); Pulse Ox 100% on R/A; Weight 86.18 kg / gr2 189.99 lbs (R); Height 5 ft. 2 in. (157.48 cm) (R); Pain 10/10; 21:12 Pain 2/10; jp6 21:12 Pain 2/10; jp6 22:19 BP 113 / 69; Pulse 66; Resp 16; Temp 97.5(O); Pulse Ox 98% on R/A; Pain 0/10; jp6 18:45 Body Mass Index 34.75 (86.18 kg, 157.48 cm) gr2 MDM: 19:19 IV Saline Lock ordered. mm11 19:19 ketorolac 30 mg IVP once ordered. mm11 19:19 Metoclopramide 10 mg IV at 40 mg/hr once over 15 mins ordered. mm11 19:19 diphenhydrAMINE 25 mg IVP once ordered. mm11 19:19 NS 0.9% 1000 ml IV at bolus once ordered. mm11 19:49 Financial registration complete. zo 20:32 [facility] Payment Agreement was scanned into [employer] and attached to record. zo Administered Medications: 19:45 Drug: ketorolac 30 mg [ketorolac 30 mg/mL (1 mL) injection solution (1 mL)] Route: IVP; jp6 Site: right hand; 21:12 Follow up: Pain 2/10 Adult jp6 19:45 Drug: Metoclopramide 10 mg [metoclopramide 5 mg/mL injection solution] Route: IV; Rate: jp6 40 mg/hr; Infused Over: 15 mins; Site: right hand; 21:13 Follow up: Response: Nausea is resolved jp6 19:45 Drug: diphenhydrAMINE 25 mg [diphenhydramine 50 mg/mL injection solution (0.5 mL)] jp6 Route: IVP; Site: right hand; 21:12 Follow up: Pain 2/10 Adult jp6 19:45 Drug: NS 0.9% 1000 ml [sodium chloride 0.9 % intravenous solution] Route: IV; Rate: jp6 bolus; Site: right hand; 21:12 Follow up: IV Status: Completed infusion; IV Intake: 1000ml jp6 Signatures: Ella Malone RN RN Navneet Lujan Matthew, DO DO mm11 Lana Salazar RN RN jp6 The chart was reviewed and I authenticate all verbal orders and agree with the evaluation and treatment provided.Attachments: 20:32 [facility] Payment Agreement zo MTDD
--- NOTE | 2016-03-13 00:31 | EDDOCDS ---
Physician Documentation [facility] Name: Jillian Reyes Age: 25 yrs Sex: Female : 1990 Arrival Date: 03/10/2016 Time: 18:44 Bed 13 Private MD: Carlos Palencia M. Disposition: 03/10/16 22:54 Discharged to Home/Self Care. Impression: Migraine without aura, not intractable. - Condition is Stable. - Discharge Instructions: Migraine Headache. - Medication Reconciliation, Local Pharmacy Hours form. - Follow up: Private Physician; When: As needed; Reason: Continuance of care. - Problem is an acute exacerbation. - Symptoms have improved. - Notes: FOLLOW UP WITH NEUROLOGY IN [place] PREVIOUSLY ARRANGED Historical: - Allergies: Latex; Tramadol HCl; spiders; - Home Meds: 1. gabapentin 300 mg Oral tab every 8 hours 2. Cymbalta 60 mg Oral cpDR once daily - PMHx: Anxiety; Depression; Migraine Headaches; - PSHx: ; Tubal ligation; - Social history: Smoking status: Patient uses tobacco products, light tobacco smoker. No barriers to communication noted, The patient speaks fluent Maltese, Speaks appropriately for age. - Family history: Not pertinent. - : The pt / caregiver states he / she is not on anticoagulants. Home medication list is obtained from the patient. - Exposure Risk Screening:: None identified. 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 2 in. (157.48 cm) (R); Pain 10/10; 21:12 Pain 2/10; jp6 21:12 Pain 2/10; jp6 22:19 BP 113 / 69; Pulse 66; Resp 16; Temp 97.5(O); Pulse Ox 98% on R/A; Pain 0/10; jp6 18:45 Body Mass Index 34.75 (86.18 kg, 157.48 cm) gr2 MDM: 19:19 IV Saline Lock ordered. mm11 19:19 ketorolac 30 mg IVP once ordered. mm11 19:19 Metoclopramide 10 mg IV at 40 mg/hr once over 15 mins ordered. mm11 19:19 diphenhydrAMINE 25 mg IVP once ordered. mm11 19:19 NS 0.9% 1000 ml IV at bolus once ordered. mm11 19:49 Financial registration complete. zo 20:32 [facility] Payment Agreement was scanned into [employer] and attached to record. zo 03/11 11:32 T-Sheet-- Draft Copy was scanned into [employer] and attached to record. gb Administered Medications: 03/10 19:45 Drug: ketorolac 30 mg [ketorolac 30 mg/mL (1 mL) injection solution (1 mL)] Route: IVP; jp6 Site: right hand; 21:12 Follow up: Pain 2/10 Adult jp6 19:45 Drug: Metoclopramide 10 mg [metoclopramide 5 mg/mL injection solution] Route: IV; Rate: jp6 40 mg/hr; Infused Over: 15 mins; Site: right hand; 21:13 Follow up: Response: Nausea is resolved jp6 19:45 Drug: diphenhydrAMINE 25 mg [diphenhydramine 50 mg/mL injection solution (0.5 mL)] jp6 Route: IVP; Site: right hand; 21:12 Follow up: Pain 2/10 Adult jp6 19:45 Drug: NS 0.9% 1000 ml [sodium chloride 0.9 % intravenous solution] Route: IV; Rate: jp6 bolus; Site: right hand; 21:12 Follow up: IV Status: Completed infusion; IV Intake: 1000ml jp6 Signatures: Adriana Sanchez, Ella Fontanez,RN RN jo3 Navneet Mosqueda Matthew, DO DO mm11 Lana Salazar,RN RN jp6 The chart was reviewed and I authenticate all verbal orders and agree with the evaluation and treatment provided.Attachments: :32 [facility] Payment Agreement zo 03/11 11:32 T-Sheet-- Draft Copy gb Chart Complete MTDD
--- NOTE | 2016-03-13 00:31 | EDDOCDS ---
Physician Documentation [facility] Name: Jillian Reyes Age: 25 yrs Sex: Female : 1990 Arrival Date: 03/10/2016 Time: 18:44 Bed 13 Private MD: Carlos Palencia M. Disposition: 03/10/16 22:54 Discharged to Home/Self Care. Impression: Migraine without aura, not intractable. - Condition is Stable. - Discharge Instructions: Migraine Headache. - Medication Reconciliation, Local Pharmacy Hours form. - Follow up: Private Physician; When: As needed; Reason: Continuance of care. - Problem is an acute exacerbation. - Symptoms have improved. - Notes: FOLLOW UP WITH NEUROLOGY IN [place] PREVIOUSLY ARRANGED Historical: - Allergies: Latex; Tramadol HCl; spiders; - Home Meds: 1. gabapentin 300 mg Oral tab every 8 hours 2. Cymbalta 60 mg Oral cpDR once daily - PMHx: Anxiety; Depression; Migraine Headaches; - PSHx: ; Tubal ligation; - Social history: Smoking status: Patient uses tobacco products, light tobacco smoker. No barriers to communication noted, The patient speaks fluent Wolof, Speaks appropriately for age. - Family history: Not pertinent. - : The pt / caregiver states he / she is not on anticoagulants. Home medication list is obtained from the patient. - Exposure Risk Screening:: None identified. [employer]: 03/10 18:54 LMP 02/27/2016 jo3 Vital Signs: 18:45 BP 147 / 86; Pulse 77; Resp 18 S; Temp 98.3(O); Pulse Ox 100% on R/A; Weight 86.18 kg / gr2 189.99 lbs (R); Height 5 ft. 2 in. (157.48 cm) (R); Pain 10/10; 21:12 Pain 2/10; jp6 21:12 Pain 2/10; jp6 22:19 BP 113 / 69; Pulse 66; Resp 16; Temp 97.5(O); Pulse Ox 98% on R/A; Pain 0/10; jp6 18:45 Body Mass Index 34.75 (86.18 kg, 157.48 cm) gr2 MDM: 19:19 IV Saline Lock ordered. mm11 19:19 ketorolac 30 mg IVP once ordered. mm11 19:19 Metoclopramide 10 mg IV at 40 mg/hr once over 15 mins ordered. mm11 19:19 diphenhydrAMINE 25 mg IVP once ordered. mm11 19:19 NS 0.9% 1000 ml IV at bolus once ordered. mm11 19:49 Financial registration complete. zo 20:32 [facility] Payment Agreement was scanned into [employer] and attached to record. zo 03/11 11:32 T-Sheet-- Draft Copy was scanned into [employer] and attached to record. gb Administered Medications: 03/10 19:45 Drug: ketorolac 30 mg [ketorolac 30 mg/mL (1 mL) injection solution (1 mL)] Route: IVP; jp6 Site: right hand; 21:12 Follow up: Pain 2/10 Adult jp6 19:45 Drug: Metoclopramide 10 mg [metoclopramide 5 mg/mL injection solution] Route: IV; Rate: jp6 40 mg/hr; Infused Over: 15 mins; Site: right hand; 21:13 Follow up: Response: Nausea is resolved jp6 19:45 Drug: diphenhydrAMINE 25 mg [diphenhydramine 50 mg/mL injection solution (0.5 mL)] jp6 Route: IVP; Site: right hand; 21:12 Follow up: Pain 2/10 Adult jp6 19:45 Drug: NS 0.9% 1000 ml [sodium chloride 0.9 % intravenous solution] Route: IV; Rate: jp6 bolus; Site: right hand; 21:12 Follow up: IV Status: Completed infusion; IV Intake: 1000ml jp6 Signatures: Adriana Sanchez, Ella Fontanez,RN RN jo3 Navneet Mosqueda Matthew, DO DO mm11 Lana Salazar,RN RN jp6 The chart was reviewed and I authenticate all verbal orders and agree with the evaluation and treatment provided.Attachments: :32 [facility] Payment Agreement zo 03/11 11:32 T-Sheet-- Draft Copy gb Chart Complete MTDD
--- NOTE | 2016-03-13 00:31 | EDDOCDS ---
Nurse's Notes [facility] Name: Jillian Reyes Age: 25 yrs Sex: Female : 1990 Arrival Date: 03/10/2016 Time: 18:44 Bed 13 Private MD: Carlos Palencia M. Diagnosis: Migraine without aura, not intractable Presentation: 03/10 18:51 Presenting complaint: Patient states: Migraine BURCH with history of the same. Took jo3 Tylenol and Motrin at home and just keeps getting worse. tried caffeine as well. This patient has no additional risk factors. Adult Sepsis Screening: The patient does not have new or worsening altered mentation. Patient's respiratory rate is less than 22. Systolic blood pressure is greater than 100. Patient has a qSOFA score of 0- Negative Sepsis Screen. Suicide/Homicide risk assessment- the patient denies having any suicidal and/or homicidal ideations and does not present with any other emotional, behavioral or mental health complaints. Status: Patient is not a health services administrator or dependent. Transition of care: patient was not received from another setting of care. 18:51 Acuity: BK Level 3 jo3 18:51 Method Of Arrival: Walkin/Carried/Asstd jo3 Triage Assessment: 18:54 Headache History: This patient has a history of headaches and the character of this jo3 headache is like all previous headaches. General: Appears in no apparent distress, Behavior is appropriate for age, cooperative. Pain: Pain currently is 9 out of 10 on a pain scale. HIV screening NA for this visit Offered previously. 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 gabapentin 300 mg Oral tab every 8 hours 2. Cymbalta 60 mg Oral cpDR once daily - PMHx: Anxiety; Depression; Migraine Headaches; - PSHx: ; Tubal ligation; - Social history: Smoking status: Patient uses tobacco products, light tobacco smoker. No barriers to communication noted, The patient speaks fluent Nauruan, Speaks appropriately for age. - Family history: Not pertinent. - : The pt / caregiver states he / she is not on anticoagulants. Home medication list is obtained from the patient. - Exposure Risk Screening:: None identified. Screenin:48 Screening information is obtained from the patient. Fall risk: No risks identified. jp6 Assistance ADL's: requires no assistance with activities of daily living. Abuse/DV Screen: The patient / caregiver reports he/she is: not in a situation that causes fear, pain or injury. Nutritional screening: No deficits noted. Advance Directives: Currently, there is no health care proxy. There is no active DNR order. There is no living will. home support is adequate. Assessment: 19:48 Reassessment: Patient appears in no apparent distress at this time. Patient states jp6 symptoms have not improved. General: Appears in no apparent distress, well developed, well nourished, Behavior is appropriate for age, cooperative, pleasant. Pain: Location: face Pain currently is 9 out of 10 on a pain scale. Neurological: Level of Consciousness is awake, alert, Oriented to person, place, time. EENT: No deficits noted. Cardiovascular: No deficits noted. Capillary refill < 3 seconds Heart tones S1 S2 present. Respiratory: No deficits noted. Airway is patent Respiratory effort is even, unlabored, Respiratory pattern is regular, symmetrical, Breath sounds are clear bilaterally. GI: No deficits noted. : No deficits noted. Derm: No deficits noted. Skin is pink, warm & dry. Musculoskeletal: No deficits noted. 21:11 Reassessment: Patient appears in no apparent distress at this time. Patient states jp6 symptoms have improved. General: Appears in no apparent distress, comfortable. Pain: Location: face Pain currently is 2 out of 10 on a pain scale. Neurological: Level of Consciousness is awake, alert, Oriented to person, place, time. Respiratory: Airway is patent Respiratory effort is even, unlabored, Respiratory pattern is regular, symmetrical. Derm: Skin is pink, warm & dry. 22:00 Reassessment: Patient appears in no apparent distress at this time. Patient states jp6 symptoms have improved. Pain: Denies pain. 23:00 Reassessment: Patient appears in no apparent distress at this time. Patient states jp6 symptoms have improved. Pain: Denies pain. Neurological: No deficits noted. Cardiovascular: Capillary refill < 3 seconds. Respiratory: Airway is patent Respiratory effort is even, unlabored, Respiratory pattern is regular, symmetrical. Derm: Skin is pink, warm & dry. Vital Signs: 18:45 BP 147 / 86; Pulse 77; Resp 18 S; Temp 98.3(O); Pulse Ox 100% on R/A; Weight 86.18 kg gr2 (R); Height 5 ft. 2 in. (157.48 cm) (R); Pain 10/10; 21:12 Pain 2/10; jp6 21:12 Pain 2/10; jp6 22:19 BP 113 / 69; Pulse 66; Resp 16; Temp 97.5(O); Pulse Ox 98% on R/A; Pain 0/10; jp6 18:45 Body Mass Index 34.75 (86.18 kg, 157.48 cm) gr2 Vitals: 18:45 Log In Time: March 10, 2016 at 18:45. gr2 ED Course: 18:45 Patient visited by Yadi Echeverria. gr2 18:45 Carlos Palencia is Private Physician. gr2 18:45 Patient moved to Waiting gr2 18:46 Patient visited by Yadi Echeverria. gr2 18:46 Patient moved to Pre RCE gr2 18:53 Triage Initiated jo3 18:54 Patient visited by Ella Malone RN. jo3 19:10 Patient moved to 13 jf3 19:11 Wang Burton DO is Attending Physician. mm11 19:11 Patient visited by Wang Burton DO. mm11 19:19 Patient visited by Wang Burton DO. mm11 19:20 Lana Salazar,RN is Primary Nurse. jp6 19:48 The patient / caregiver is instructed regarding the plan of care and ED course. jp6 19:48 Inserted saline lock: 20 gauge in right hand. jp6 20:20 Patient visited by Lana Salazar RN. jp6 20:32 [facility] Payment Agreement was scanned into Dialog[employer] and attached to record. zo 21:26 Patient visited by Lana Salazar,EDUARD. jp6 22:32 Patient visited by Lana Salazar,EDUARD. jp6 23:00 Discontinued lock intact, bleeding controlled, pressure dressing applied, No jp6 redness/swelling at site. No procedures done that require assistance. 03/11 11:32 T-Sheet-- Draft Copy was scanned into Dialoggy and attached to record. gb Administered Medications: 03/10 19:45 Drug: ketorolac 30 mg [ketorolac 30 mg/mL (1 mL) injection solution (1 mL)] Route: IVP; jp6 Site: right hand; 21:12 Follow up: Pain 2/10 Adult jp6 19:45 Drug: Metoclopramide 10 mg [metoclopramide 5 mg/mL injection solution] Route: IV; Rate: jp6 40 mg/hr; Infused Over: 15 mins; Site: right hand; 21:13 Follow up: Response: Nausea is resolved jp6 19:45 Drug: diphenhydrAMINE 25 mg [diphenhydramine 50 mg/mL injection solution (0.5 mL)] jp6 Route: IVP; Site: right hand; 21:12 Follow up: Pain 2/10 Adult jp6 19:45 Drug: NS 0.9% 1000 ml [sodium chloride 0.9 % intravenous solution] Route: IV; Rate: jp6 bolus; Site: right hand; 21:12 Follow up: IV Status: Completed infusion; IV Intake: 1000ml jp6 Intake: 21:12 IV: 1000.00ml; Total: 1000.00ml. jp6 Order Results: There are currently no results for this order. Outcome: 22:54 Discharge ordered by Provider. mm11 23:00 Discharge Assessment: Patient awake, alert and oriented x 3. No cognitive and/or jp6 functional deficits noted. Patient verbalized understanding of disposition instructions. patient administered narcotics - no. The following High Risk Discharge criteria are identified: None. Discharged to home ambulatory. Condition: improved. Discharge instructions given to patient, Instructed on discharge instructions, follow up and referral plans. Demonstrated understanding of instructions, Pt was receptive of discharge instructions/ teaching. No special radiology studies were completed. Property sent home with patient. 23:30 Patient left the ED. jp6 Signatures: Adriana Sanchez, Christophe Reg gb Ella MaloneRN RN isabel3 Navneet Mosqueda Matthew, DO DO mm11 Yadi Echeverria gr2 Fredo Jackson,EDUARD RN jf3 Lana Salazar RN RN jp6 Chart Complete MTDD
== END 2016-03-10 23:30 | disposition home or self-care (01) ==
LOC: M ED 18:44
DX: G43.909 Migraine, unspecified, not intractable, without status migrainosus (principal); F41.9 Anxiety disorder, unspecified; F32.9 Major depressive disorder, single episode, unspecified; F17.210 Nicotine dependence, cigarettes, uncomplicated; Z79.899 Other long term (current) drug therapy; Z91.040 Latex allergy status; Z88.8 Allergy status to other drugs, medicaments and biological substances; Z91.038 Other insect allergy status

== ENCOUNTER → 2016-03-23 | Outpatient (CLI) | payer OTHER ==
[2016-03-23 12:27] LABS: FOLATE 7.2 NG/ML; VITAMIN B12 LEVEL 296 PG/ML
== END ==
LOC: M LAB 11:02
PROVIDERS: ATTEND Family Medicine
DX: R53.83 Other fatigue (principal)

== ENCOUNTER → 2016-04-21 | Outpatient (CLI) | payer OTHER | LOC: M LAB 18:31 | PROVIDERS: ATTEND Family Medicine | DX: K90.9 Intestinal malabsorption, unspecified (principal) ==

== ENCOUNTER → 2016-04-22 | Outpatient (REF) | payer OTHER | LOC: M SFHCPLAZ 09:18 | PROVIDERS: ATTEND Family Medicine | DX: K90.9 Intestinal malabsorption, unspecified (principal) ==

== ENCOUNTER → 2016-04-22 | Outpatient (CLI) | payer OTHER ==
[2016-04-22 10:20] LABS: BASO % 0.8 % (0.0-1.0); EOS # 0.2 K/mm3 (0.0-0.50); EOS % 3.5 % (0.0-3.0); LARGE UNSTAINED CELL # 0.1 K/mm3 (0.0-0.4); LARGE UNSTAINED CELL % 1.3 % (0.0-4.0); LYMPH # 1.5 K/mm3 (1.5-6.5); LYMPH % 29.4 % (24.0-44.0); MEAN CORPUSCULAR HEMOGLOBIN 28.7 pg (27.0-33.0); MEAN CORPUSCULAR HGB CONC 33.4 g/dl (32.0-36.5); MEAN CORPUSCULAR VOLUME 86.1 fl (80.0-96.0); MONO # 0.3 K/mm3 (0.0-0.8); NEUTROPHILS # 3.1 K/mm3 (1.8-7.7); PLATELET COUNT, AUTOMATED 226 k/mm3 (150-450); RED CELL DISTRIBUTION WIDTH 11.6 % (11.5-14.5); WHITE BLOOD COUNT 5.2 K/mm3 (4.0-10.0)
[2016-04-22 10:47] LABS: CONTROL LINE MONO RF C INT CTR LINE PRESENT
[2016-04-22 10:48] LABS: FREE T4 1.01 NG/DL (0.76-1.46)
[2016-04-22 10:50] LABS: ERYTHROCYTE SEDIMENTATION RATE 3 mm/hr (0-20)
== END ==
LOC: M LAB 08:56
PROVIDERS: ATTEND Family Medicine
DX: R53.83 Other fatigue (principal); Z15.89 Genetic susceptibility to other disease

== ENCOUNTER 2016-05-10 21:30 | Emergency (ER) | payer OTHER ==
[~2016-05-10] VITALS: Ht 157.5 cm; Wt 87.5 kg
[2016-05-10 21:30] VITALS: BP 147/93
[2016-05-10] MEDS ORDERED: ALBU17IN INH (22:14)
[2016-05-10] MEDS ORDERED: GABA-283 PO (22:14)
[2016-05-10] MEDS ORDERED: THERTAB3 PO (22:14)
[2016-05-10] MEDS ORDERED: DULO30CA PO (22:14)
[2016-05-10] MEDS ORDERED: VERA40TA PO (22:14)
== END 2016-05-10 23:29 | disposition left against medical advice (07) ==
LOC: M ED 22:28
DX: R05 Cough (principal); Z53.21 Procedure and treatment not carried out due to patient leaving prior to being seen by health care provider

== ENCOUNTER → 2016-05-11 | Outpatient (REF) | payer OTHER ==
[~2016-05-11] MED LIST changes: +ALBU17IN INH; +DULO30CA PO; +GABA-283 PO; +THERTAB3 PO; +VERA40TA PO
== END ==
LOC: M SFHCPLAZ 15:23
PROVIDERS: ATTEND Physician Assistant
DX: J06.9 Acute upper respiratory infection, unspecified (principal)

== ENCOUNTER → 2016-06-11 | Outpatient (REF) | payer OTHER, MEDICAID | LOC: M SFHCPLAZ 13:03 | PROVIDERS: ATTEND Family Medicine | DX: E66.9 Obesity, unspecified (principal) ==

== ENCOUNTER 2016-06-22 17:05 | Emergency (ER) | payer MEDICAID, OTHER ==
[~2016-06-22] VITALS: Ht 157.5 cm; Wt 87.1 kg
[2016-06-22 17:05] VITALS: BP 131/91
[2016-06-22] MEDS ORDERED: D3-5CAP PO (17:18)
[2016-06-22] MEDS ORDERED: VERA1TAB10 PO (17:18)
[2016-06-22] MEDS ORDERED: VITA10002 PO (17:18)
[2016-06-22] MEDS ORDERED: DESV50TA3 PO (17:18)
[2016-06-22] MEDS ORDERED: IBUPROFEN 600 MG TAB PO ONE (17:45)
[2016-06-22] MEDS ORDERED: IBUP600T26 PO (17:49)
== END 2016-06-22 18:05 | disposition home or self-care (01) ==
LOC: M ED 17:55
DX: S63.502A Unspecified sprain of left wrist, initial encounter (principal); W50.2XXA Accidental twist by another person, initial encounter; Y92.019 Unspecified place in single-family (private) house as the place of occurrence of the external cause; Y93.89 Activity, other specified; Y99.9 Unspecified external cause status; G56.00 Carpal tunnel syndrome, unspecified upper limb; Z79.899 Other long term (current) drug therapy; Z88.5 Allergy status to narcotic agent; Z91.040 Latex allergy status

== ENCOUNTER → 2016-07-06 | Outpatient (CLI) | payer OTHER, MEDICAID ==
[~2016-07-06] MED LIST changes: +D3-5CAP PO; +DESV50TA3 PO; +VERA1TAB10 PO; +VITA10002 PO
--- NOTE | 2016-07-06 22:38 | ECGEPIP ---
Stationary ECG Study [facility] Test Date: 2016-07-06 Pat Name: DALTON CARRILLO Department: Room: - Gender: F Deadener: : 1990 Requested By: Faustino Aviles Order Number: [id number] Reading MD: Jeramy Hill Measurements Intervals [place] Rate: 71 P: 55 UT: 179 QRS: 39 QRSD: 101 T: 44 QT: 365 QTc: 397 Interpretive Statements SINUS RHYTHM S1 S2 S3 pattern (consider lung disease). Borderline low limb lead voltages. Electronically Signed On 07-06-2016 22:37:43 EDT by Jeramy Hill
== END ==
LOC: M EKG 12:31
PROVIDERS: ATTEND Orthopaedic Surgery
DX: Z01.818 Encounter for other preprocedural examination (principal); I10 Essential (primary) hypertension

== ENCOUNTER → 2016-08-31 | Outpatient (CLI) | payer OTHER ==
[~2016-08-31] MED LIST changes: +IBUP-1022 PO
--- NOTE | 2016-09-01 02:42 | REP ---
Clinical: Cough . Comparison: 10/19/2014 . Technique: PA and lateral. Findings: The mediastinum and cardiac silhouette are normal. The lung beyer are clear and without acute consolidation, effusion, or pneumothorax. The skeletal structures are intact and normal. Impression: 1. No acute cardiopulmonary process. Signed by Russ Felipe MD 09/01/2016 02:34 A
== END ==
LOC: M RAD 15:37
PROVIDERS: ATTEND Family Medicine
DX: R05 Cough (principal)

== ENCOUNTER → 2016-09-07 | Outpatient (REF) | payer OTHER | LOC: M SFHCPLAZ 09:31 | PROVIDERS: ATTEND Family Medicine | DX: E55.9 Vitamin D deficiency, unspecified (principal) ==

== ENCOUNTER → 2016-09-13 | Outpatient (REF) | payer OTHER ==
[2016-09-13 19:34] LABS: BASO % 0.6 % (0.0-1.0); EOS # 0.3 K/mm3 (0.0-0.50); EOS % 4.2 % (0.0-3.0); LARGE UNSTAINED CELL # 0.1 K/mm3 (0.0-0.4); LARGE UNSTAINED CELL % 1.2 % (0.0-4.0); LYMPH # 1.8 K/mm3 (1.5-6.5); LYMPH % 27.5 % (24.0-44.0); MEAN CORPUSCULAR HEMOGLOBIN 30.7 pg (27.0-33.0); MEAN CORPUSCULAR HGB CONC 35.2 g/dl (32.0-36.5); MEAN CORPUSCULAR VOLUME 87.2 fl (80.0-96.0); MONO # 0.3 K/mm3 (0.0-0.8); MONO % 4.3 % (0.0-5.0); NEUTROPHILS # 3.9 K/mm3 (1.8-7.7); NEUTROPHILS % 62.2 % (36.0-66.0); PLATELET COUNT, AUTOMATED 236 k/mm3 (150-450); RED CELL DISTRIBUTION WIDTH 12.3 % (11.5-14.5); WHITE BLOOD COUNT 6.3 K/mm3 (4.0-10.0)
[2016-09-13 20:00] LABS: FREE T4 1.01 NG/DL (0.76-1.46)
[2016-09-17 00:06] LABS: HCV RNA NAA QUALITIATIVE Negative (Negative)
== END ==
LOC: M SFHCPLAZ 14:52
PROVIDERS: ATTEND Family Medicine
DX: G62.9 Polyneuropathy, unspecified (principal); R53.83 Other fatigue

== ENCOUNTER → 2016-11-24 | Outpatient (REF) | payer OTHER ==
[2016-11-24 12:04] LABS: BASO % 0.4 % (0.0-1.0); EOS % 0.4 % (0.0-3.0); IMMATURE GRANULOCYTE % 0.1 % (0-0); LYMPH # 1.2 10^3/uL (1.5-6.5); LYMPH % 11.9 % (24.0-44.0); MEAN CORPUSCULAR HEMOGLOBIN 29.7 pg (27.0-33.0); MEAN CORPUSCULAR HGB CONC 34.4 g/dl (32.0-36.5); MEAN CORPUSCULAR VOLUME 86.3 fl (80.0-96.0); MONO # 0.7 10^3/uL (0.0-0.8); MONO % 7.2 % (0.0-5.0); PLATELET COUNT, AUTOMATED 239 10^3/uL (150-450); RED CELL DISTRIBUTION WIDTH 12.1 % (11.5-14.5); WHITE BLOOD COUNT 9.9 10^3/uL (4.0-10.0)
[2016-11-24 12:58] LABS: ANION GAP 10 MEQ/L (8-16); BLOOD UREA NITROGEN 6 MG/DL (7-18); CALCIUM LEVEL 8.9 MG/DL (8.5-10.1); CARBON DIOXIDE LEVEL 22 MEQ/L (21-32); CHLORIDE LEVEL 106 MEQ/L (98-107); CREATININE FOR GFR 0.57 MG/DL (0.55-1.02); GLOMERULAR FILTRATION RATE > 60.0 (>60); GLUCOSE, FASTING 78 MG/DL (70-105); POTASSIUM SERUM 3.5 MEQ/L (3.5-5.1); SODIUM LEVEL 138 MEQ/L (136-145)
[2016-11-28 00:06] LABS: COXSACKIE TYPE A-16 IgM Negative titer (Neg:<1:10); COXSACKIE TYPE A-24 IgM Negative titer (Neg:<1:10); COXSACKIE TYPE A-7 IgM Negative titer (Neg:<1:10); COXSACKIE TYPE A-9 IgM Negative titer (Neg:<1:10); COXSACKIE TYPE B1 1:32 (Neg:<1:8); COXSACKIE TYPE B3 1:16 (Neg:<1:8); COXSACKIE TYPE B4 1:16 (Neg:<1:8); COXSACKIE TYPE B5 1:32 (Neg:<1:8); WEST NILE VIRUS ANTIBODY IgM Negative (Negative)
[2016-12-07 00:07] LABS: ECHOVIRUS TYPE 11 <1:10 (.); ECHOVIRUS TYPE 6 <1:10 (.); ECHOVIRUS TYPE 7 <1:10 (.); ECHOVIRUS TYPE 9 <1:10 (.)
== END ==
LOC: M SFHCPLAZ 10:36
PROVIDERS: ATTEND Family Medicine
DX: R29.1 Meningismus (principal); M62.81 Muscle weakness (generalized)

== ENCOUNTER 2016-11-25 15:40 | Emergency (ER) | payer OTHER ==
[~2016-11-25] VITALS: Ht 157.5 cm; Wt 86.4 kg
[2016-11-25 15:41] VITALS: BP 152/89
== END 2016-11-25 16:40 | disposition left against medical advice (07) ==
LOC: M ED 15:40
DX: R50.9 Fever, unspecified (principal); Z53.29 Procedure and treatment not carried out because of patient's decision for other reasons

== ENCOUNTER → 2016-12-21 | Outpatient (REF) | payer OTHER ==
[2016-12-21 14:01] LABS: BASO % 0.3 % (0.0-1.0); EOS # 0.2 10^3/uL (0.0-0.50); EOS % 2.7 % (0.0-3.0); IMMATURE GRANULOCYTE % 0.1 % (0-0); LYMPH # 1.9 10^3/uL (1.5-6.5); LYMPH % 28.4 % (24.0-44.0); MEAN CORPUSCULAR HEMOGLOBIN 29.5 pg (27.0-33.0); MEAN CORPUSCULAR VOLUME 86.7 fl (80.0-96.0); MONO # 0.5 10^3/uL (0.0-0.8); MONO % 7.2 % (0.0-5.0); NEUTROPHILS # 4.1 10^3/uL (1.8-7.7); NEUTROPHILS % 61.3 % (36.0-66.0); PLATELET COUNT, AUTOMATED 290 10^3/uL (150-450); RED CELL DISTRIBUTION WIDTH 12.3 % (11.5-14.5); WHITE BLOOD COUNT 6.8 10^3/uL (4.0-10.0)
== END ==
LOC: M SFHCPLAZ 11:12
PROVIDERS: ATTEND Family Medicine
DX: R50.9 Fever, unspecified (principal)

== ENCOUNTER → 2017-02-08 | Outpatient (CLI) | payer OTHER ==
[2017-02-08 11:10] LABS: D-DIMER QUANT 320.8 ng/ml (<500)
[2017-02-10 00:06] LABS: Lyme Disease IgG/IgM Antibodie <0.91 ISR (0.00-0.90); Lyme Disease IgM Ab Quantitati <0.80 index (0.00-0.79)
== END ==
LOC: M LAB 10:31
DX: R50.9 Fever, unspecified (principal)
CPT/HCPCS: 71046

== ENCOUNTER → 2017-02-09 | Outpatient (REF) | payer OTHER ==
[2017-02-09 13:57] LABS: BASO % 0.3 % (0.0-1.0); EOS # 0.2 10^3/uL (0.0-0.50); EOS % 2.6 % (0.0-3.0); HEMATOCRIT 41.8 % (36.0-47.0); HEMOGLOBIN 14.2 g/dl (12.0-16.0); IMMATURE GRANULOCYTE % 0.3 % (0-0); LYMPH # 2.2 10^3/uL (1.5-6.5); LYMPH % 30.1 % (24.0-44.0); MEAN CORPUSCULAR VOLUME 85.5 fl (80.0-96.0); MONO # 0.5 10^3/uL (0.0-0.8); MONO % 6.8 % (0.0-5.0); NEUTROPHILS # 4.4 10^3/uL (1.8-7.7); NEUTROPHILS % 59.9 % (36.0-66.0); PLATELET COUNT, AUTOMATED 267 10^3/uL (150-450); RED BLOOD COUNT 4.89 10^6/uL (4.00-5.40); RED CELL DISTRIBUTION WIDTH 12.4 % (11.5-14.5); WHITE BLOOD COUNT 7.3 10^3/uL (4.0-10.0)
== END ==
LOC: M SFHCPLAZ 10:45
DX: J18.1 Lobar pneumonia, unspecified organism (principal)

== ENCOUNTER → 2017-02-18 | Outpatient (CLI) | payer OTHER ==
[2017-02-23 00:08] LABS: ANGIOTENSIN 1 CONVERTING ENZYM 29 U/L (14-82); ASPERGILLUS FLAVUS ABY Negative (Neg:<1:1); ASPERGILLUS FUMIGATUS ABY Negative (Neg:<1:1); ASPERGILLUS NIGER ABY Negative (Neg:<1:1)
== END ==
LOC: M LAB 08:58
DX: J18.1 Lobar pneumonia, unspecified organism (principal)
CPT/HCPCS: 82164

== ENCOUNTER → 2017-02-23 | Outpatient (REF) | payer OTHER ==
[2017-02-23 18:26] LABS: C REACTIVE PROTEIN QUANTITATIV < 0.30 MG/DL (0.00-0.30); COMPLEMENT C4 26.7 MG/DL (10-40)
[2017-02-23 18:26] LABS: COMPLEMENT C3 113 MG/DL (90-180)
[2017-02-23 22:33] LABS: ERYTHROCYTE SEDIMENTATION RATE 7 mm/hr (0-20)
[2017-02-26 00:07] LABS: IgG P18 AB Absent (.); IgG P23 AB Absent (.); IgG P28 AB Absent (.); IgG P30 AB Absent (.); IgG P39 AB Absent (.); IgG P41 AB Absent (.); IgG P45 AB Absent (.); IgG P58 AB Absent (.); IgG P66 AB Absent (.); IgG P93 AB Absent (.); IgM P23 AB Absent (.); IgM P39 AB Absent (.); IgM P41 AB Absent (.); LYME IgG WB INTERPRETATION Negative (.); LYME IgM WB INTERPRETATION Negative (.)
[2017-02-27 15:08] LABS: ANCA-ATYPICAL <1:20 titer (Neg:<1:20); ANTI DOUBLE STRAND-DNA AB 1 IU/mL (0-9); CYTOPLASMIC NEUTROP AB ANCA-C <1:20 titer (Neg:<1:20); PERINUCLEAR AB ANCA-P <1:20 titer (Neg:<1:20)
== END ==
LOC: M SFHCPLAZ 15:04
DX: R93.0 Abnormal findings on diagnostic imaging of skull and head, not elsewhere classified (principal)

== ENCOUNTER → 2017-02-23 | Outpatient (CLI) | payer OTHER | LOC: M RAD 08:43 | DX: R51 Headache (principal) | CPT/HCPCS: 70551 ==

== ENCOUNTER → 2017-03-08 | Outpatient (CLI) | payer OTHER ==
[2017-03-08 13:08] LABS: COLOR, CSF COLORLESS (COLORLESS); CSF RBC < 2 10^3/uL (<2); CSF TUBE# CELL CNT TUBE 1; CSF WBC 1 /uL (0-10)
[2017-03-08 13:09] LABS: APPEARANCE, CSF CLEAR (CLEAR); CSF DIFF IF INDICATED? NO (NO)
[2017-03-11 00:06] LABS: CAP MANDATED REFLEX TO CULTURE Not Indicated (.); CRYPTOCOCCUS ANTIGEN CSF Negative (Negative)
== END ==
LOC: M RADPRO 10:02
DX: R93.8 Abnormal findings on diagnostic imaging of other specified body structures (principal); R51 Headache; F41.9 Anxiety disorder, unspecified; F32.9 Major depressive disorder, single episode, unspecified; J45.909 Unspecified asthma, uncomplicated; D51.9 Vitamin B12 deficiency anemia, unspecified; R50.9 Fever, unspecified; E06.9 Thyroiditis, unspecified; Z79.899 Other long term (current) drug therapy; Z88.5 Allergy status to narcotic agent; Z91.040 Latex allergy status; Z91.038 Other insect allergy status
CPT/HCPCS: 62270

== ENCOUNTER 2017-03-16 14:51 | Emergency (ER) | payer OTHER, MEDICAID ==
[2017-03-16 15:33] LABS: BASO % 0.3 % (0.0-1.0); EOS % 0.3 % (0.0-3.0); HEMATOCRIT 41.2 % (36.0-47.0); HEMOGLOBIN 13.8 g/dl (12.0-16.0); IMMATURE GRANULOCYTE % 0.5 % (0-3.0); LYMPH # 1.9 10^3/uL (1.5-6.5); LYMPH % 22.2 % (24.0-44.0); MEAN CORPUSCULAR HEMOGLOBIN 28.9 pg (27.0-33.0); MEAN CORPUSCULAR HGB CONC 33.5 g/dl (32.0-36.5); MEAN CORPUSCULAR VOLUME 86.4 fl (80.0-96.0); MONO # 0.4 10^3/uL (0.0-0.8); MONO % 5.1 % (0.0-5.0); NEUTROPHILS # 6.2 10^3/uL (1.8-7.7); NEUTROPHILS % 71.6 % (36.0-66.0); PLATELET COUNT, AUTOMATED 203 10^3/uL (150-450); RED BLOOD COUNT 4.77 10^6/uL (4.00-5.40); RED CELL DISTRIBUTION WIDTH 12.5 % (11.5-14.5); WHITE BLOOD COUNT 8.7 10^3/uL (4.0-10.0)
[2017-03-16] MEDS: NS 1,000 ML IV (15:45)
[2017-03-16 15:55] LABS: CONTROL LINE HCG INT CTR LINE PRESENT; HCG, SERUM QUALITATIVE NEGATIVE (NEGATIVE)
[2017-03-16 16:00] LABS: AMMONIA < 10 uMOL/L (<32)
[2017-03-16 16:04] LABS: LACTIC ACID SEPSIS PROTOCOL 1.6 MMOL/L (0.4-2.0)
[2017-03-16 16:07] LABS: ALBUMIN/GLOBULIN RATIO 1.33 (1.00-1.93); ALKALINE PHOSPHATASE 50 U/L (45-117); ALT/SGPT 19 U/L (12-78); ANION GAP 11 MEQ/L (8-16); AST/SGOT 8 U/L (7-37); BILIRUBIN,DIRECT < 0.1 MG/DL (0.0-0.2); BILIRUBIN,TOTAL 0.2 MG/DL (0.2-1.0); BLOOD UREA NITROGEN 5 MG/DL (7-18); CALCIUM LEVEL 8.3 MG/DL (8.5-10.1); CARBON DIOXIDE LEVEL 22 MEQ/L (21-32); CHLORIDE LEVEL 108 MEQ/L (98-107); CPK CREATINE PHOSPHOKINASE 120 U/L (26-192); CREATININE FOR GFR 0.73 MG/DL (0.55-1.30); ETHYL ALCOHOL (ETHANOL) 0.004 % (0.000-0.010); GLOMERULAR FILTRATION RATE > 60.0 (>60); GLUCOSE, FASTING 119 MG/DL (70-100); POTASSIUM SERUM 3.5 MEQ/L (3.5-5.1); SALICYLATE LEVEL 4.9 MG/DL (5.0-30.0); SODIUM LEVEL 141 MEQ/L (136-145); TROPONIN I < 0.02 NG/ML (< 0.10)
[2017-03-16 16:13] LABS: ACETAMINOPHEN LEVEL < 2.0 UG/ML (10.0-30.0); MB/CK RELATIVE INDEX 0.83 (< OR =4); THYROID STIMULATING HORMONE 0.858 uIU/ML (0.358-3.740)
[2017-03-16 17:03] LABS: BEDSIDE GLUCOSE 128 MG/DL (70-105)
[2017-03-16 17:25] LABS: KETONE, URINE AUTO RFX NEGATIVE (NEGATIVE); LEUKOCYTE ESTERASE UR AUTO RFX NEGATIVE (NEGATIVE); NITRITE, URINE AUTO RFX NEGATIVE (NEGATIVE); RBC, URINE AUTO RFX 2 /HPF (0-3); SPECIFIC GRAVITY UR AUTO RFX 1.003 (1.002-1.035); SQUAM EPITHELIAL CELL UR AURFX 0 /HPF (0-6); WBC, URINE AUTO RFX 1 /HPF (0-3)
[2017-03-16 17:50] LABS: AMPHETAMINES LEVEL URINE NEGATIVE (NEGATIVE); BARBITURATES URINE NEGATIVE (NEGATIVE); BENZODIAZEPINES URINE NEGATIVE (NEGATIVE); CANNABINOIDS URINE NEGATIVE (NEGATIVE); COCAINE METABOLITE URINE NEGATIVE (NEGATIVE); METHADONE URINE NEGATIVE (NEGATIVE); OPIATES URINE NEGATIVE (NEGATIVE); PHENCYCLIDINE URINE NEGATIVE (NEGATIVE)
== END 2017-03-16 19:27 | disposition home or self-care (01) ==
LOC: M ED 14:51
DX: F19.188 Other psychoactive substance abuse with other psychoactive substance-induced disorder (principal); R41.82 Altered mental status, unspecified; G43.909 Migraine, unspecified, not intractable, without status migrainosus; Z88.5 Allergy status to narcotic agent; Z91.040 Latex allergy status
CPT/HCPCS: 71045

== ENCOUNTER → 2017-03-18 | Outpatient (CLI) | payer OTHER ==
[~2017-03-18] MED LIST changes: -ALBU17IN INH; -D3-5CAP PO; -DESV50TA3 PO; -DULO30CA PO; -GABA-283 PO; -IBUP-1022 PO; -IBUP600T26 PO; +ISOVUE-370 76% 100ML VIAL (Q9967) As Ordered; -THERTAB3 PO; -VERA1TAB10 PO; -VERA40TA PO; -VICO5TAB PO; -VITA10002 PO
== END ==
LOC: M RAD 11:10
DX: M79.661 Pain in right lower leg (principal); R04.2 Hemoptysis; Q27.9 Congenital malformation of peripheral vascular system, unspecified
CPT/HCPCS: Q9967

== ENCOUNTER → 2017-04-19 | Outpatient (REF) | payer OTHER ==
[2017-04-19 12:05] LABS: HEMATOCRIT 42.3 % (36.0-47.0); HEMOGLOBIN 14.2 g/dl (12.0-16.0); MEAN CORPUSCULAR HGB CONC 33.6 g/dl (32.0-36.5); MEAN CORPUSCULAR VOLUME 86.5 fl (80.0-96.0); PLATELET COUNT, AUTOMATED 253 10^3/uL (150-450); RED BLOOD COUNT 4.89 10^6/uL (4.00-5.40); RED CELL DISTRIBUTION WIDTH 12.1 % (11.5-14.5); WHITE BLOOD COUNT 5.9 10^3/uL (4.0-10.0)
[2017-04-19 12:09] LABS: POSITIVE MORPH POS FLAG
[2017-04-19 12:10] LABS: ADD MANUAL DIFFER YES; DIFF SLIDE NUMBER 170
[2017-04-19 12:45] LABS: ERYTHROCYTE SEDIMENTATION RATE 4 mm/hr (0-20)
[2017-04-19 13:13] LABS: ATYPICAL LYMPH 3 % (0-5); BASOPHILS 1 % (0-4); LYMPHOCYTES 40 % (16-52); MONOCYTES 5 % (0-8); NEUTROPHILS 51 % (35-75); PLATELET ESTIMATE NORMAL (NORMAL)
[2017-04-19 13:14] LABS: ANISOCYTOSIS 1+
[2017-04-20 09:31] LABS: HIV 1&2 SCREEN CENTAUR NEGATIVE (NEGATIVE)
== END ==
LOC: M SFHCPLAZ 09:36
DX: A68.9 Relapsing fever, unspecified (principal)
CPT/HCPCS: 36415

== ENCOUNTER → 2017-05-02 | Outpatient (CLI) | payer OTHER | LOC: M RAD 08:40 | DX: R16.0 Hepatomegaly, not elsewhere classified (principal) | CPT/HCPCS: 76705 ==

== ENCOUNTER 2017-06-06 10:29 | Day surgery (SDC) | payer OTHER ==
[2017-06-06] MEDS: NS 1,000 ML IV (10:45)
[2017-06-06] MEDS ORDERED: fentaNYL 100 MCG/2 ML INJECTION (J3010) As Ordered (11:14)
[2017-06-06] MEDS ORDERED: PROPOFOL 200 MG/20 ML VIAL As Ordered ×3 (11:16→11:56)
[2017-06-06] MEDS ORDERED: LIDOCAINE 2% INJ 100 MG/5 ML SDV (FOR ANES.) As Ordered (11:16)
== END 2017-06-06 13:03 | disposition home or self-care (01) ==
LOC: M OPP 10:29
DX: R19.7 Diarrhea, unspecified (principal); K92.1 Melena; K62.5 Hemorrhage of anus and rectum; K63.89 Other specified diseases of intestine; K64.8 Other hemorrhoids; R10.13 Epigastric pain; R11.2 Nausea with vomiting, unspecified; K31.89 Other diseases of stomach and duodenum; I10 Essential (primary) hypertension; J45.909 Unspecified asthma, uncomplicated; G62.9 Polyneuropathy, unspecified; E28.2 Polycystic ovarian syndrome; F31.9 Bipolar disorder, unspecified; D64.9 Anemia, unspecified; G47.00 Insomnia, unspecified; K82.9 Disease of gallbladder, unspecified; G93.2 Benign intracranial hypertension; R76.8 Other specified abnormal immunological findings in serum; Z79.899 Other long term (current) drug therapy; Z88.5 Allergy status to narcotic agent; Z91.040 Latex allergy status; Z88.8 Allergy status to other drugs, medicaments and biological substances
CPT/HCPCS: 45380

== ENCOUNTER → 2017-06-30 | Outpatient (REF) | payer OTHER ==
[2017-06-30 15:22] LABS: URIC ACID 5.8 MG/DL (2.6-6.0)
[2017-07-07 00:07] LABS: BETA-2 GLYCOPROTEIN I ABY IGA <9 (0-25); BETA-2 GLYCOPROTEIN I ABY IGG <9 (0-20); BETA-2 GLYCOPROTEIN I ABY IGM <9 (0-32); CARDIOLIPIN IGA ANTIBODY <9 APL U/mL (0-11); CARDIOLIPIN IGG ANTIBODY <9 GPL U/mL (0-14); CARDIOLIPIN IGM ANTIBODY 10 MPL U/mL (0-12)
[2017-07-12 07:23] LABS: DRVV SCREEN 45.1 SEC
== END ==
LOC: M SFHCPLAZ 11:26
DX: R76.0 Raised antibody titer (principal); G62.9 Polyneuropathy, unspecified

== ENCOUNTER → 2017-08-02 | Outpatient (REF) | payer OTHER | LOC: M SFHCPLAZ 12:52 | DX: M13.0 Polyarthritis, unspecified (principal); R04.2 Hemoptysis ==

== ENCOUNTER → 2017-08-03 | Outpatient (CLI) | payer OTHER ==
[2017-08-03 12:40] LABS: BASO % 0.3 % (0.0-1.0); EOS # 0.4 10^3/uL (0.0-0.50); EOS % 4.8 % (0.0-3.0); HEMATOCRIT 42.9 % (36.0-47.0); HEMOGLOBIN 14.7 g/dl (12.0-15.5); IMMATURE GRANULOCYTE % 0.3 % (0-3.0); LYMPH # 2.2 10^3/uL (1.5-6.5); LYMPH % 24.8 % (24.0-44.0); MEAN CORPUSCULAR HEMOGLOBIN 29.3 pg (27.0-33.0); MEAN CORPUSCULAR HGB CONC 34.3 g/dl (32.0-36.5); MEAN CORPUSCULAR VOLUME 85.6 fl (80.0-96.0); MONO # 0.8 10^3/uL (0.0-0.8); MONO % 8.5 % (0.0-5.0); NEUTROPHILS # 5.5 10^3/uL (1.8-7.7); NEUTROPHILS % 61.3 % (36.0-66.0); PLATELET COUNT, AUTOMATED 327 10^3/uL (150-450); RED BLOOD COUNT 5.01 10^6/uL (4.00-5.40); RED CELL DISTRIBUTION WIDTH 12.2 % (11.5-14.5)
[2017-08-03 12:58] LABS: D-DIMER QUANT 283.1 ng/ml (<500)
[2017-08-03 13:11] LABS: C REACTIVE PROTEIN QUANTITATIV 2.22 MG/DL (0.00-0.30)
[2017-08-03 13:14] LABS: ERYTHROCYTE SEDIMENTATION RATE 14 mm/hr (0-20)
[2017-08-04 14:39] LABS: ANTINUCLEAR ANTIBODIES DIRECT Negative (Negative)
== END ==
LOC: M LAB 11:33
DX: M13.0 Polyarthritis, unspecified (principal)
CPT/HCPCS: 71046

== ENCOUNTER → 2017-09-12 | Outpatient (REF) | payer OTHER, MEDICAID ==
[2017-09-13 10:12] LABS: DRVV SCREEN 31.2 SEC
[2017-09-13 10:13] LABS: PTT LUPUS TYPE ANTICOAG SCREEN 0.7 (0-1.2)
[2017-09-14 00:07] LABS: BETA-2 GLYCOPROTEIN I ABY IGA <9 (0-25); BETA-2 GLYCOPROTEIN I ABY IGG <9 (0-20); BETA-2 GLYCOPROTEIN I ABY IGM <9 (0-32); CARDIOLIPIN IGA ANTIBODY <9 APL U/mL (0-11); CARDIOLIPIN IGG ANTIBODY <9 GPL U/mL (0-14); CARDIOLIPIN IGM ANTIBODY <9 MPL U/mL (0-12)
== END ==
LOC: M LAB REF 12:59
DX: R76.0 Raised antibody titer (principal)

== ENCOUNTER → 2017-11-25 | Outpatient (CLI) | payer OTHER, MEDICAID ==
[2017-11-25 13:49] LABS: BASO % 0.7 % (0.0-1.0); EOS # 0.2 10^3/uL (0.0-0.50); EOS % 4.2 % (0.0-3.0); HEMOGLOBIN 14.4 g/dl (12.0-15.5); IMMATURE GRANULOCYTE % 0.4 % (0-3.0); LYMPH % 35.7 % (24.0-44.0); MEAN CORPUSCULAR HEMOGLOBIN 29.1 pg (27.0-33.0); MEAN CORPUSCULAR HGB CONC 33.5 g/dl (32.0-36.5); MONO # 0.4 10^3/uL (0.0-0.8); MONO % 7.6 % (0.0-5.0); NEUTROPHILS # 2.9 10^3/uL (1.8-7.7); NEUTROPHILS % 51.4 % (36.0-66.0); PLATELET COUNT, AUTOMATED 265 10^3/uL (150-450); RED BLOOD COUNT 4.94 10^6/uL (4.00-5.40); RED CELL DISTRIBUTION WIDTH 12.6 % (11.5-14.5); WHITE BLOOD COUNT 5.7 10^3/uL (4.0-10.0)
[2017-11-25 14:13] LABS: C REACTIVE PROTEIN QUANTITATIV < 0.30 MG/DL (0.00-0.30); FREE T4 1.02 NG/DL (0.76-1.46)
[2017-11-27 01:40] LABS: IgG P18 AB Absent (.); IgG P23 AB Absent (.); IgG P28 AB Absent (.); IgG P30 AB Absent (.); IgG P39 AB Absent (.); IgG P41 AB Absent (.); IgG P45 AB Absent (.); IgG P58 AB Absent (.); IgG P66 AB Absent (.); IgG P93 AB Absent (.); IgM P23 AB Absent (.); IgM P39 AB Absent (.); IgM P41 AB Absent (.); LYME IgG WB INTERPRETATION Negative (.); LYME IgM WB INTERPRETATION Negative (.)
== END ==
LOC: M LAB 12:31
DX: I44.0 Atrioventricular block, first degree (principal)
CPT/HCPCS: 84443

== ENCOUNTER → 2018-04-05 | Outpatient (REF) | payer OTHER ==
[~2018-04-05] MED LIST changes: +ABIL1TAB11 PO; +ACET250T2 PO; +ALBU17IN INH; +BENT10CA PO; +BREO1INH INH; +D3-5CAP PO; +DESV50TA3 PO; +DULO30CA PO; +GABA-845 PO; +IBUP-1022 PO; +IBUP600T26 PO; -ISOVUE-370 76% 100ML VIAL (Q9967) As Ordered; +PRIS50TA PO; +PROAAER10 INH; +THERTAB3 PO; +VERA1TAB10 PO; +VERA40TA PO; +VICO5TAB PO; +VITA10002 PO
[2018-04-05 14:25] LABS: C REACTIVE PROTEIN QUANTITATIV < 0.30 MG/DL (0.00-0.30)
[2018-04-08 00:09] LABS: CYCLIC CITRULLINATED PEPTIDE 9 units (0-19); RNP ANTIBODY < 0.2 AI (0.0-0.9); SMITHS ANTIBODY < 0.2 AI (0.0-0.9)
== END ==
LOC: M SFHCPLAZ 12:10
PROVIDERS: ATTEND Family Medicine
DX: M13.0 Polyarthritis, unspecified (principal); R53.82 Chronic fatigue, unspecified

== ENCOUNTER → 2018-04-21 | Outpatient (REF) | payer OTHER ==
[2018-04-21 20:53] LABS: INFLUENZA A AMPLIFICATION NEGATIVE (NEGATIVE); INFLUENZA B AMPLIFICATION NEGATIVE (NEGATIVE)
== END ==
LOC: M LAB REF 13:00
PROVIDERS: ATTEND Physician Assistant
DX: J11.1 Influenza due to unidentified influenza virus with other respiratory manifestations (principal)

== ENCOUNTER 2018-06-18 16:15 | Emergency (ER) | payer OTHER ==
[~2018-06-18] VITALS: Ht 157.5 cm; Wt 90.6 kg
[~2018-06-18 16:15] MED LIST changes: -DULO30CA PO; +DULO30CA9 PO; +VERA120T4 PO; -VERA1TAB10 PO
[2018-06-18] MEDS ORDERED: CVS55SPR NARES (16:27)
[2018-06-18] MEDS ORDERED: PRED20TA PO ×2 (16:27→17:24)
[2018-06-18] MEDS ORDERED: AMOX875T2 PO (16:27)
[2018-06-18] MEDS ORDERED: IPRATROPIUM 0.5MG/ALBUTEROL 2.5MG INH SOL UD 3ML (DUONEB)(J7620) NEB ONE (16:45)
[2018-06-18] MEDS ORDERED: predniSONE 20 MG TAB PO ONE (16:45)
[2018-06-18] MEDS ORDERED: PROAAER10 INH (17:24)
[2018-06-18 17:34] VITALS: BP 121/70
== END 2018-06-18 17:36 | disposition home or self-care (01) ==
LOC: M ED 16:15
DX: J45.901 Unspecified asthma with (acute) exacerbation (principal); J06.9 Acute upper respiratory infection, unspecified; Z72.0 Tobacco use; G43.909 Migraine, unspecified, not intractable, without status migrainosus; J30.9 Allergic rhinitis, unspecified; Z87.440 Personal history of urinary (tract) infections; K82.9 Disease of gallbladder, unspecified; Z79.899 Other long term (current) drug therapy; Z88.5 Allergy status to narcotic agent; Z91.040 Latex allergy status

== ENCOUNTER 2018-09-05 20:48 | Emergency (ER) | payer OTHER ==
[~2018-09-05] VITALS: Ht 157.5 cm; Wt 95.0 kg
[~2018-09-05 20:48] MED LIST changes: +AMOX875T2 PO; +CVS55SPR NARES; +CYAN100049 PO; +PRED20TA PO; -VITA10002 PO
[2018-09-05] MEDS: IPRATROPIUM 0.5MG/ALBUTEROL 2.5MG INH SOL UD 3ML (DUONEB)(J7620) NEB PRN ×2 (21:24→22:41)
[2018-09-05] MEDS ORDERED: AZIT-12 PO (22:54)
[2018-09-05] MEDS ORDERED: PRED20TA PO (22:54)
[2018-09-05 23:00] VITALS: BP 132/84
--- NOTE | 2018-09-06 07:34 | REP ---
Clinical: Shortness of breath . Comparison: 03/16/2017, 08/03/2017 . Technique: PA and lateral. Findings: The mediastinum and cardiac silhouette are normal. The lung beyer are clear and without acute consolidation, effusion, or pneumothorax. The skeletal structures are intact and normal. Impression: 1. No acute cardiopulmonary process. Electronically Signed by Russ Felipe MD 09/06/2018 07:25 A
== END 2018-09-05 23:06 | disposition home or self-care (01) ==
LOC: M ED 20:48
DX: J45.901 Unspecified asthma with (acute) exacerbation (principal); J42 Unspecified chronic bronchitis; R00.0 Tachycardia, unspecified; I10 Essential (primary) hypertension; F17.200 Nicotine dependence, unspecified, uncomplicated; Z88.5 Allergy status to narcotic agent; Z91.040 Latex allergy status

== ENCOUNTER 2018-10-13 08:57 | Emergency (ER) | payer OTHER ==
[~2018-10-13] VITALS: Ht 157.5 cm; Wt 85.8 kg
[~2018-10-13 08:57] MED LIST changes: +AZIT-12 PO
[2018-10-13] MEDS ORDERED: ARNU1INH3 INH (09:13)
[2018-10-13] MEDS ORDERED: NS 1,000 ML IV ONE (09:45)
[2018-10-13 09:58] LABS: BASO % 0.5 % (0.0-1.0); EOS # 0.3 10^3/uL (0.0-0.5); EOS % 4.4 % (0.0-3.0); HEMATOCRIT 43.7 % (36.0-47.0); HEMOGLOBIN 15.2 g/dl (12.0-15.5); LYMPH # 1.6 10^3/uL (1.5-5.0); LYMPH % 24.9 % (24.0-44.0); MEAN CORPUSCULAR HEMOGLOBIN 31.2 pg (27.0-33.0); MEAN CORPUSCULAR HGB CONC 34.8 g/dl (32.0-36.5); MEAN CORPUSCULAR VOLUME 89.7 fl (80.0-96.0); MONO # 0.5 10^3/uL (0.0-0.8); MONO % 7.1 % (0.0-5.0); NEUTROPHILS % 62.9 % (36.0-66.0); PLATELET COUNT, AUTOMATED 231 10^3/uL (150-450); RED BLOOD COUNT 4.87 10^6/uL (4.00-5.40); WHITE BLOOD COUNT 6.4 10^3/uL (4.0-10.0)
[2018-10-13 10:19] LABS: ALBUMIN 3.7 GM/DL (3.2-5.2); ALT/SGPT 16 U/L (12-78); BILIRUBIN,DIRECT < 0.1 MG/DL (0.0-0.2); BILIRUBIN,TOTAL 0.2 MG/DL (0.2-1.0); BLOOD UREA NITROGEN 8 MG/DL (7-18); CALCIUM LEVEL 8.9 MG/DL (8.5-10.1); CARBON DIOXIDE LEVEL 25 MEQ/L (21-32); CHLORIDE LEVEL 111 MEQ/L (98-107); CREATININE FOR GFR 0.75 MG/DL (0.55-1.30); GLOMERULAR FILTRATION RATE > 60.0 (>60); GLUCOSE, FASTING 87 MG/DL (70-100); LIPASE 156 U/L (73-393); SODIUM LEVEL 142 MEQ/L (136-145); TOTAL PROTEIN 6.9 GM/DL (6.4-8.2)
[2018-10-13] MEDS ORDERED: ISOVUE-370 76% 100ML VIAL (Q9967) As Ordered ONE (10:48)
--- NOTE | 2018-10-13 11:15 | REP ---
Clinical: Right lower quadrant pain. Technique: Axial contrast enhanced images from the lung bases to the pubic symphysis using 100 ml Isovue 370 intravenous contrast material with coronal and sagittal re-formations. Findings: Lung bases are clear. Visualized heart and pericardium normal. Liver, spleen, pancreas, gallbladder, bilateral adrenal glands and kidneys are normal. The enteric system is without obstruction or acute inflammatory process. Normal cecum, terminal ileum and appendix are identified in the right lower quadrant. There is a subtle haziness to the central mesentery with mildly prominent lymph nodes suggesting the possibility of viral mesenteric adenitis. Pelvis demonstrates normal bladder and age-appropriate uterus/adnexa. No ascites. No free air. No retroperitoneal adenopathy. Abdominal aorta and vasculature normal. Musculoskeletal structures are intact. Impression: 1. A very subtle haziness to the mid mesentery with mildly prominent lymph nodes raise the possibility of viral mesenteric adenitis. 2. Otherwise normal examination with normal appendix identified in the right lower quadrant. No ascites. Electronically Signed by Russ Felipe MD 10/13/2018 11:06 A
[2018-10-13 11:44] LABS: HCG, SERUM QUALITATIVE NEGATIVE (NEGATIVE)
[2018-10-13 13:27] VITALS: BP 118/68
== END 2018-10-13 13:28 | disposition home or self-care (01) ==
LOC: M ED 08:57
DX: I88.0 Nonspecific mesenteric lymphadenitis (principal); F41.9 Anxiety disorder, unspecified; F31.9 Bipolar disorder, unspecified; Z87.442 Personal history of urinary calculi; Z87.448 Personal history of other diseases of urinary system; F17.200 Nicotine dependence, unspecified, uncomplicated; F12.10 Cannabis abuse, uncomplicated; Z79.899 Other long term (current) drug therapy; Z88.5 Allergy status to narcotic agent; Z91.040 Latex allergy status
CPT/HCPCS: 74177; 80048; 80076; 81001; 83605; 83690; 84703; 85025; 87507; 96360; 99284; Q9967

== ENCOUNTER → 2018-11-03 | Outpatient (CLI) | payer OTHER ==
[~2018-11-03] MED LIST changes: +ARNU1INH3 INH
== END ==
LOC: M LAB 12:07
PROVIDERS: ATTEND Family Medicine
DX: R06.2 Wheezing (principal)

== ENCOUNTER 2018-12-08 11:50 | Emergency (ER) | payer OTHER ==
[~2018-12-08] VITALS: Ht 157.5 cm; Wt 86.4 kg
[2018-12-08] MEDS ORDERED: FLUT1INH3 (11:58)
--- NOTE | 2018-12-08 12:33 | REP ---
Clinical: Trauma. Technique: AP, lateral, bilateral oblique views right hand . Findings: The osseous structures and joint spaces are intact and normal. There is no evidence for acute fracture or dislocation. Surrounding soft tissues are unremarkable. No subcutaneous emphysema or radiodense foreign body. Impression: No acute fracture or dislocation. Electronically Signed by Russ Felipe MD 12/08/2018 12:24 P
[2018-12-08 12:46] VITALS: BP 128/77
== END 2018-12-08 12:49 | disposition home or self-care (01) ==
LOC: M ED 11:50
DX: S60.221A Contusion of right hand, initial encounter (principal); W23.0XXA Caught, crushed, jammed, or pinched between moving objects, initial encounter; Y92.099 Unspecified place in other non-institutional residence as the place of occurrence of the external cause; Y93.9 Activity, unspecified; Y99.9 Unspecified external cause status; E11.9 Type 2 diabetes mellitus without complications; I10 Essential (primary) hypertension; G43.909 Migraine, unspecified, not intractable, without status migrainosus; J45.909 Unspecified asthma, uncomplicated; F41.9 Anxiety disorder, unspecified; F32.9 Major depressive disorder, single episode, unspecified; F17.200 Nicotine dependence, unspecified, uncomplicated; Z79.899 Other long term (current) drug therapy; Z88.5 Allergy status to narcotic agent; Z91.040 Latex allergy status

== ENCOUNTER → 2019-02-01 | Outpatient (CLI) | payer OTHER ==
[~2019-02-01] MED LIST changes: +FLUT1INH3
--- NOTE | 2019-02-06 06:56 | HOLTMON ---
[facility] Test Date: 2019-02-01 Pat Name: DALTON CARRILLO Department: Room: - Gender: Female Ehs Specialist: RASHAAD VELEZ : 1990 Requested By: RICHI TORRES Order Number: [id number] Reading MD: Alexi Kitchen Interpretive Statements FATHER-HEART DISEASE MOM HAD STOKE-AGE 30 Ther was a lot of artifact No significant diary entries. Heart rate variability was normal, albeit a bit blunted. There was a brief 7.5 second episode of bradycardia with a heart rate of 38, apparently asymptomatic. The SVE beats indicated on attached strips appear to be artifact. What is described as atrial fibrillation in the attached tracings is actually sinus rhythm. Therefore there is minimal or no ectopy. This is a normal Holter monitor for her age. Electronically Signed on 02-06-2019 6:56:07 EST by Alexi Kitchen
== END ==
LOC: M EKG 10:33
PROVIDERS: ATTEND Family Medicine
DX: R00.2 Palpitations (principal)

== ENCOUNTER → 2019-05-07 | Outpatient (CLI) | payer OTHER | LOC: M LABSMTC 10:57 | PROVIDERS: ATTEND Family Medicine | DX: Z11.59 Encounter for screening for other viral diseases (principal); Z20.828 Contact with and (suspected) exposure to other viral communicable diseases ==

== ENCOUNTER → 2019-06-04 | Outpatient (REF) | payer OTHER ==
[2019-06-04 17:33] LABS: BASO % 0.5 % (0.0-1.0); EOS # 0.4 10^3/uL (0.0-0.5); EOS % 4.6 % (0.0-3.0); HEMATOCRIT 42.5 % (36.0-47.0); HEMOGLOBIN 14.5 g/dl (12.0-15.5); LYMPH # 2.1 10^3/uL (1.5-5.0); LYMPH % 27.8 % (24.0-44.0); MEAN CORPUSCULAR HEMOGLOBIN 30.2 pg (27.0-33.0); MEAN CORPUSCULAR HGB CONC 34.1 g/dl (32.0-36.5); MEAN CORPUSCULAR VOLUME 88.5 fl (80.0-96.0); MONO # 0.6 10^3/uL (0.0-0.8); MONO % 7.5 % (0.0-5.0); NEUTROPHILS # 4.5 10^3/uL (1.5-8.5); NEUTROPHILS % 59.3 % (36.0-66.0); PLATELET COUNT, AUTOMATED 288 10^3/uL (150-450); WHITE BLOOD COUNT 7.6 10^3/uL (4.0-10.0)
== END ==
LOC: M SFHCPLAZ 14:42
PROVIDERS: ATTEND Family Medicine
DX: R06.89 Other abnormalities of breathing (principal)

== ENCOUNTER → 2019-06-13 | Outpatient (CLI) | payer OTHER ==
[~2019-06-13] MED LIST changes: +METHACHOLINE KIT (J7674) INH ONE
--- NOTE | 2019-06-13 11:46 | PFTRPT ---
Site: [facility], [address] [place], [address] ID: [id number] Name: DALTON CARRILLO Visit Date: 06/13/2019 Second ID: [id number] Referring Doctor: Ean Jason MD Reviewing Doctor: Ean Jason MD [employer] Head: Petrona Lane Age: 28 : 1990 Sex: Female Race: Height: 62.00 Inches Weight: 207.00 Lbs BSA: 1.94 Order IDs: [id number] Requested Test(s): <RESP-PFT.BROCHOPROV> Diagnosis: J45.40 R05 of albuterol for post bronchodilator. Review Status: Not Reviewed Pre-Bronch Post-Bronch Pred Actual %Pred Actual %Chng SPIROMETRY FVC (L) 3.53 3.18 89 3.24 1 FEV1 (L) 2.99 2.31 77 2.48 7 FEV1/FVC (%) 84 73 86 77 5 FEF 25% (L/sec) 5.48 3.98 72 4.51 13 FEF 50% (L/sec) 4.49 2.12 47 2.57 21 FEF 75% (L/sec) 1.89 0.60 31 0.93 55 FEF 25-75% (L/sec) 3.33 1.65 49 2.18 32 FEF Max (L/sec) 6.70 5.44 81 4.66 -14 FIVC (L) 3.21 2.87 -10 FIF 50% (L/sec) 4.25 3.27 77 2.69 -17 FIF Max (L/sec) 3.81 2.84 -25 Expiratory Time (sec) 7.93 6.82 -14 Back Extrap Vol (L) 0.06 0.07 12 Time To FEFmax (sec) 0.069 0.092 32
== END ==
LOC: M CARPUL 11:04
PROVIDERS: ATTEND Nurse Practitioner Family
DX: J45.40 Moderate persistent asthma, uncomplicated (principal); R05 Cough
CPT/HCPCS: 94070; 95070; J7674

== ENCOUNTER → 2019-07-04 | Outpatient (CLI) | payer OTHER ==
[~2019-07-04] MED LIST changes: +AIRD1INH INH; -METHACHOLINE KIT (J7674) INH ONE; +NASA1SPR NARES; +TIOT18INH INH
[2019-07-04 17:59] LABS: BASO % 0.3 % (0.0-1.0); EOS # 0.3 10^3/uL (0.0-0.5); EOS % 3.6 % (0.0-3.0); HEMATOCRIT 39.8 % (36.0-47.0); HEMOGLOBIN 13.9 g/dl (12.0-15.5); LYMPH # 2.1 10^3/uL (1.5-5.0); LYMPH % 24.3 % (24.0-44.0); MEAN CORPUSCULAR HEMOGLOBIN 30.4 pg (27.0-33.0); MEAN CORPUSCULAR HGB CONC 34.9 g/dl (32.0-36.5); MEAN CORPUSCULAR VOLUME 87.1 fl (80.0-96.0); MONO # 0.6 10^3/uL (0.0-0.8); MONO % 6.5 % (0.0-5.0); NEUTROPHILS # 5.6 10^3/uL (1.5-8.5); NEUTROPHILS % 65.2 % (36.0-66.0); PLATELET COUNT, AUTOMATED 236 10^3/uL (150-450); RED BLOOD COUNT 4.57 10^6/uL (4.00-5.40); WHITE BLOOD COUNT 8.6 10^3/uL (4.0-10.0)
== END ==
LOC: M LAB 17:32
PROVIDERS: ATTEND Allergy & Immunology Allergy
DX: J45.40 Moderate persistent asthma, uncomplicated (principal); R05 Cough

== ENCOUNTER 2019-07-06 22:26 | Emergency (ER) | payer OTHER ==
[~2019-07-06] VITALS: Ht 157.5 cm; Wt 97.2 kg
[~2019-07-06 22:26] MED LIST changes: -AIRD1INH INH; -NASA1SPR NARES; -TIOT18INH INH
[2019-07-06] MEDS ORDERED: NASA1SPR NARES (22:34)
[2019-07-06] MEDS ORDERED: AIRD1INH INH (22:34)
[2019-07-06] MEDS ORDERED: TIOT18INH INH (22:34)
--- NOTE | 2019-07-07 00:02 | REPVR ---
PROCEDURE INFORMATION: Exam: US Duplex Right Lower Extremity Veins, Limited Exam date and time: 07/06/2019 11:45 PM Age: 28 years old Clinical indication: Pain; Leg, lower; Right; Additional info: R lower leg swelling TECHNIQUE: Imaging protocol: Real-time Duplex ultrasound of the Right Lower Extremity with 2-D giraldo scale, color Doppler flow and spectral waveform analysis with image documentation. Limited exam was focused on the right lower extremity veins. COMPARISON: US Duplex, Ext,LOWER veins,unilat 03/18/2017 11:45 AM FINDINGS: Right deep veins: The common femoral, femoral, and popliteal veins are patent without thrombus. Normal Doppler waveforms. Normal compressibility and/or augmentation response. Right superficial veins: Unremarkable. Saphenofemoral junction is patent without thrombus. Soft tissues: Unremarkable. IMPRESSION: No evidence of deep vein thrombosis. Electronically signed by: Sidney Houston On 07/07/2019 00:01:58 AM
[2019-07-07 00:19] VITALS: BP 138/79
== END 2019-07-07 00:20 | disposition home or self-care (01) ==
LOC: M ED 22:26
DX: M79.89 Other specified soft tissue disorders (principal); E11.9 Type 2 diabetes mellitus without complications; I10 Essential (primary) hypertension; F17.200 Nicotine dependence, unspecified, uncomplicated; G43.909 Migraine, unspecified, not intractable, without status migrainosus; J45.909 Unspecified asthma, uncomplicated; F41.9 Anxiety disorder, unspecified; Z88.5 Allergy status to narcotic agent; Z91.040 Latex allergy status; Z79.899 Other long term (current) drug therapy

== ENCOUNTER → 2019-07-13 | Outpatient (CLI) | payer OTHER ==
[~2019-07-13] MED LIST changes: +AIRD1INH INH; +NASA1SPR NARES; +TIOT18INH INH
[2019-07-13 13:48] LABS: BLOOD UREA NITROGEN 11 MG/DL (7-18); CALCIUM LEVEL 8.6 MG/DL (8.5-10.1); CARBON DIOXIDE LEVEL 24 MEQ/L (21-32); CHLORIDE LEVEL 110 MEQ/L (98-107); CHOLESTEROL LEVEL 209 MG/DL (<200); CREATININE FOR GFR 0.59 MG/DL (0.55-1.30); GLOMERULAR FILTRATION RATE > 60.0 (>60); GLUCOSE, FASTING 89 MG/DL (70-100); HDL CHOLESTEROL 44 MG/DL (>40); LDL CHOLESTEROL 149 MG/DL (<100); NON-HDL-C 165 MG/DL; NT-PRO BNP 46 PG/ML (<125); SODIUM LEVEL 140 MEQ/L (136-145); TRIGLYCERIDES LEVEL 78 MG/DL (<150)
== END ==
LOC: M LAB 12:44
PROVIDERS: ATTEND Family Medicine
DX: M79.89 Other specified soft tissue disorders (principal)

== ENCOUNTER → 2019-07-21 | Outpatient (CLI) | payer OTHER ==
[2019-07-21 16:05] LABS: FREE T4 1.28 NG/DL (0.76-1.46); THYROID STIMULATING HORMONE 1.46 uIU/ML (0.358-3.740)
[2019-07-23 11:25] LABS: THYROID PEROXIDASE ANTIBODY 35.6 U/ML (<60.0)
== END ==
LOC: M LAB 14:34
PROVIDERS: ATTEND Family Medicine
DX: Z86.39 Personal history of other endocrine, nutritional and metabolic disease (principal)

== ENCOUNTER 2019-07-26 14:45 | Emergency (ER) | payer OTHER ==
[~2019-07-26] VITALS: Ht 160 cm; Wt 97.1 kg
[2019-07-26] MEDS ORDERED: ALBUTEROL 90 MCG/ACT 8GM HFA INHALER INH ONE (16:00)
[2019-07-26 16:15] LABS: BASO % 0.3 % (0.0-1.0); EOS # 0.2 10^3/uL (0.0-0.5); EOS % 3.3 % (0.0-3.0); HEMATOCRIT 43.9 % (36.0-47.0); HEMOGLOBIN 14.9 g/dl (12.0-15.5); LYMPH # 1.8 10^3/uL (1.5-5.0); LYMPH % 29.8 % (24.0-44.0); MEAN CORPUSCULAR HEMOGLOBIN 29.4 pg (27.0-33.0); MEAN CORPUSCULAR HGB CONC 33.9 g/dl (32.0-36.5); MEAN CORPUSCULAR VOLUME 86.6 fl (80.0-96.0); MONO # 0.4 10^3/uL (0.0-0.8); MONO % 6.2 % (0.0-5.0); NEUTROPHILS # 3.6 10^3/uL (1.5-8.5); NEUTROPHILS % 60.2 % (36.0-66.0); PLATELET COUNT, AUTOMATED 252 10^3/uL (150-450); RED BLOOD COUNT 5.07 10^6/uL (4.00-5.40)
[2019-07-26 16:24] LABS: PROTHROMBIN TIME 12.9 SECONDS (11.8-14.0)
[2019-07-26 16:25] LABS: PARTIAL THROMBOPLASTIN TIME 27.2 SECONDS (25.0-38.4)
[2019-07-26 16:33] LABS: D-DIMER QUANT < 270 ng/ml (<500)
[2019-07-26 16:35] LABS: ERYTHROCYTE SEDIMENTATION RATE 5 mm/hr (0-20)
[2019-07-26 16:41] LABS: ALBUMIN 4.2 GM/DL (3.2-5.2); ALT/SGPT 21 U/L (12-78); BILIRUBIN,DIRECT 0.1 MG/DL (0.0-0.2); BILIRUBIN,TOTAL 0.3 MG/DL (0.2-1.0); C REACTIVE PROTEIN QUANTITATIV < 0.30 MG/DL (0.00-0.30); TOTAL PROTEIN 7.6 GM/DL (6.4-8.2)
--- NOTE | 2019-07-26 16:50 | REP ---
Duplex extremity venous ultrasound: Right lower extremity. History: Right calf swelling, rule out DVT. Findings: The deep veins are anechoic and fully compressible from the groin to the popliteal fossa in the right lower extremity. Color flow imaging is homogeneous. Spectral Doppler interrogation demonstrates intact respiratory variation in flow and normal manual augmentation of flow. There is no evidence of deep vein thrombosis. Incidental note is made of a 3.6 x 2.4 x 1.4 cm Story's cyst in the right popliteal soft tissues. Impression: Story's cyst on the right. Otherwise negative right lower extremity duplex venous ultrasound. No evidence of deep vein thrombosis. Electronically Signed by Radhames Recinos MD 07/26/2019 04:42 P
--- NOTE | 2019-07-26 17:38 | REP ---
TWO-VIEW CHEST: REASON FOR EXAM: Dyspnea and wheezing. COMPARISON EXAM: 09/05/2018 FINDINGS: The superior mediastinal structures are midline. The cardiac silhouette is unremarkable in size, shape, and position. The diaphragmatic surfaces of the lungs are regular, and the costophrenic angles are clear. The pulmonary beyer are clear. The imaged osseous structures are intact. IMPRESSION: There is no acute cardiopulmonary disease. No significant change from the prior exam. Electronically Signed by Sunny Yarbrough DO 07/26/2019 06:46 P
[2019-07-26 17:44] VITALS: BP 126/85
--- NOTE | 2019-07-26 18:35 | ECGEPIP ---
[facility] - ED Test Date: 2019-07-26 Pat Name: DALTON CARRILLO Department: Room: - Gender: Female [employer] Technician: [facility] : 1990 Requested By: Barry Chong Order Number: [id number] Reading MD: Prachi Theodore Measurements Intervals [place] Rate: 83 P: 60 CA: 182 QRS: 9 QRSD: 100 T: 53 QT: 361 QTc: 426 Interpretive Statements SINUS RHYTHM DECREASED RATE 03/16/17 Electronically Signed on 07-26-2019 18:35:31 EDT by Prachi Theodore
== END 2019-07-26 17:55 | disposition home or self-care (01) ==
LOC: M ED 14:45
DX: J45.901 Unspecified asthma with (acute) exacerbation (principal); M71.21 Synovial cyst of popliteal space [Baker], right knee; E11.9 Type 2 diabetes mellitus without complications; I10 Essential (primary) hypertension; G93.2 Benign intracranial hypertension; G43.909 Migraine, unspecified, not intractable, without status migrainosus; F41.9 Anxiety disorder, unspecified; F32.9 Major depressive disorder, single episode, unspecified; F17.200 Nicotine dependence, unspecified, uncomplicated; E66.9 Obesity, unspecified; Z79.899 Other long term (current) drug therapy; Z88.5 Allergy status to narcotic agent; Z91.040 Latex allergy status

== ENCOUNTER → 2019-08-13 | Outpatient (CLI) | payer OTHER ==
[~2019-08-13] MED LIST changes: +ACET325C5 PO; +CLAR5TAB7 PO
[2019-08-13 17:18] LABS: ALBUMIN 3.7 GM/DL (3.2-5.2); ALT/SGPT 19 U/L (12-78); BILIRUBIN,DIRECT < 0.1 MG/DL (0.0-0.2); BILIRUBIN,TOTAL 0.2 MG/DL (0.2-1.0); TOTAL PROTEIN 6.9 GM/DL (6.4-8.2)
== END ==
LOC: M LAB 14:54
PROVIDERS: ATTEND Family Medicine
DX: M79.89 Other specified soft tissue disorders (principal)

== ENCOUNTER → 2019-08-14 | Outpatient (CLI) | payer OTHER ==
--- NOTE | 2019-08-24 17:11 | SLEEPHOME ---
DATE OF PROCEDURE: 08/14/2019 ORDERED BY: SKYE Brown Diagnostic home sleep testing was performed due to concern for the obstructive sleep apnea syndrome in this patient with history of excessive somnolence, morning headaches and nonrestorative sleep with comorbidity of gastroesophageal reflux . For testing a nocturnal T3 respiratory monitoring device was used. Continuous record was made of pulse, oxygen saturation, airflow, chest and abdominal strain, and body position. 9 hours and 59 minutes of data were reviewed. There were 6 hours and 7 minutes marked as time in bed. During the interval marked time in bed, there were 78 respiratory events identified of 10 seconds in duration or greater for a respiratory event index of 12.7 per hour. The events were primarily obstructive not exclusive to sleep position. Baseline pulse rate 64 beats per minute. Pulse rate ranged 42-91. Baseline saturation was 93%. Saturations fell to 86%. The oxygen desaturation index was 2.4. Testing was performed in both the supine and non-supine positions. IMPRESSION: Abnormal home sleep testing with repetitive respiratory events and oxygen desaturations to 86% with a respiratory event index of 12.7 is consistent with the obstructive sleep apnea syndrome. RECOMMENDATIONS: The patient should be encouraged to undergo formal sleep evaluation and consider in laboratory pressure titration. MTDD
== END ==
LOC: M SLEEP HO 07:59
PROVIDERS: ATTEND Nurse Practitioner Family
DX: R06.83 Snoring (principal)

== ENCOUNTER → 2019-08-15 | Outpatient (REF) | payer OTHER ==
[2019-08-15 10:39] LABS: APPEARANCE, URINE CLEAR (CLEAR); BACTERIA, URINE AUTO NEGATIVE (NEGATIVE); BILIRUBIN, URINE AUTO NEGATIVE (NEGATIVE); BLOOD, URINE BLOOD 1+ (NEGATIVE); COLOR, URINE YELLOW (YELLOW); GLUCOSE, URINE (UA) AUTO NEGATIVE (NEGATIVE); KETONE, URINE AUTO NEGATIVE (NEGATIVE); LEUKOCYTE ESTERASE, URINE AUTO NEGATIVE (NEGATIVE); MUCUS, URINE SMALL (NEGATIVE); NITRITE, URINE AUTO NEGATIVE (NEGATIVE); PROTEIN, URINE AUTO NEGATIVE (NEGATIVE); RBC, URINE AUTO 1 /HPF (0-3); SPECIFIC GRAVITY URINE AUTO 1.014 (1.002-1.035); SQUAMOUS EPITHELIAL CELL UR AU 1 /HPF (0-6); UROBILINOGEN, URINE AUTO 0.2 mg/dL (0.0-2.0); WBC, URINE AUTO 0 /HPF (0-3)
== END ==
LOC: M SFHCPLAZ 10:13
PROVIDERS: ATTEND Family Medicine
DX: M79.89 Other specified soft tissue disorders (principal)

== ENCOUNTER → 2019-08-28 | Outpatient (CLI) | payer OTHER | LOC: M CARPUL 08:01 | PROVIDERS: ATTEND Student in an Organized Health Care Education/Training Program | DX: R06.00 Dyspnea, unspecified (principal) ==

== ENCOUNTER → 2019-09-07 | Outpatient (REF) | payer OTHER | LOC: M SFHCWAGY 08:54 | PROVIDERS: ATTEND Advanced Practice Midwife | DX: Z12.4 Encounter for screening for malignant neoplasm of cervix (principal) ==

== ENCOUNTER → 2019-09-28 | Outpatient (CLI) | payer OTHER ==
[~2019-09-28] MED LIST changes: +ISOVUE-370 76% 100ML VIAL As Ordered ONE
--- NOTE | 2019-10-31 11:38 | REP ---
CT ABDOMEN AND PELVIS WITH IV CONTRAST, WITHOUT BOWEL CONTRAST Delay in reporting results from hospital computer system malfunction from malware / ransomware. COMPARISON: None. FINDINGS: Visualized lung beyer are unremarkable. The hepatic parenchyma is homogeneous. The gallbladder, pancreas, and spleen are normal size and unremarkable. The adrenals and kidneys are unremarkable. The abdominal aorta is unremarkable. There is no periaortic or retroperitoneal mass or adenopathy. There is mild wall thickening of the sigmoid colon, nonspecific, possible artifactual from peristalsis, but could represent colitis in the appropriate clinical setting. Otherwise, the bowel loops are unremarkable. There is no bowel distention or obstruction. The mesentery is unremarkable. There is no mesenteric adenopathy, mass, or ascites. The appendix is unremarkable. PELVIS: The uterus is unremarkable. There are ligation clips in the adnexa bilaterally. The adnexa are otherwise unremarkable. The bladder is unremarkable. There is no pelvic adenopathy or mass. No ascites. Lumbar spine and pelvic skeletal structures are unremarkable. IMPRESSION: Essentially negative CT study of the abdomen and pelvis. There is no abdominal or pelvic mass or adenopathy. There is no bowel distention or obstruction. There are ligation clips in the adnexa bilaterally. There is mild wall thickening of the sigmoid colon. This is nonspecific and can be artifactual peristalsis or could represent colitis in the appropriate clinical setting. MTDD
== END ==
LOC: M RAD 10:14
PROVIDERS: ATTEND Family Medicine
DX: M79.89 Other specified soft tissue disorders (principal); R10.9 Unspecified abdominal pain
CPT/HCPCS: 74177; Q9967

== ENCOUNTER 2019-10-03 13:04 | Emergency (ER) | payer OTHER ==
[~2019-10-03] VITALS: Ht 157.5 cm; Wt 100.6 kg
[~2019-10-03 13:04] MED LIST changes: -ACET325C5 PO; -CLAR5TAB7 PO; -ISOVUE-370 76% 100ML VIAL As Ordered ONE
[2019-10-03] MEDS ORDERED: ONDANSETRON 4MG/2ML VIAL IV ONE (14:15)
[2019-10-03] MEDS ORDERED: NS 1,000 ML IV ONE (14:15)
--- NOTE | 2019-10-03 14:35 | REPVR ---
PROCEDURE INFORMATION: Exam: CT Head Without Contrast Exam date and time: 10/03/2019 2:31 PM Age: 28 years old Clinical indication: Altered mental status/memory loss TECHNIQUE: Imaging protocol: Computed tomography of the head without contrast. Radiation optimization: All CT scans at this facility use at least one of these dose optimization techniques: automated exposure control; mA and/or kV adjustment per patient size (includes targeted exams where dose is matched to clinical indication); or iterative reconstruction. COMPARISON: CT Head without contrast 03/16/2017 4:03 PM FINDINGS: Brain: Normal. No hemorrhage. Unremarkable white matter. No mass effect. Ventricles: Normal. No ventriculomegaly. Bones/joints: Unremarkable. No acute fracture. Sinuses: Visualized sinuses are unremarkable. No fluid levels. Mastoid air cells: Visualized mastoid air cells are well aerated. Soft tissues: Unremarkable. IMPRESSION: No CT evidence for acute intracranial abnormality. Electronically signed by: Higinio Galeano On 10/03/2019 14:35:46 PM
[2019-10-03 14:57] LABS: VENOUS BASE EXCESS -0.3 (-2.0-2.0); VENOUS PARTIAL PRESSURE CO2 48.7 mmHg (38.0-50.0); VENOUS PARTIAL PRESSURE O2 43.8 mmHg (30.0-50.0); VENOUS PH 7.345 UNITS (7.330-7.430); VENOUS TOTAL CO2 27.5 MEQ/L (24.0-28.0)
[2019-10-03 14:58] LABS: VENOUS O2 SATURATION 78.4 % (60.0-80.0)
[2019-10-03 15:09] LABS: BASO % 0.4 % (0.0-1.0); EOS # 0.2 10^3/uL (0.0-0.5); EOS % 2.4 % (0.0-3.0); HEMATOCRIT 44.6 % (36.0-47.0); HEMOGLOBIN 14.9 g/dl (12.0-15.5); LYMPH # 1.9 10^3/uL (1.5-5.0); LYMPH % 26.6 % (24.0-44.0); MEAN CORPUSCULAR HEMOGLOBIN 29.4 pg (27.0-33.0); MEAN CORPUSCULAR HGB CONC 33.4 g/dl (32.0-36.5); MEAN CORPUSCULAR VOLUME 88.1 fl (80.0-96.0); MONO # 0.4 10^3/uL (0.0-0.8); MONO % 5.7 % (0.0-5.0); NEUTROPHILS # 4.5 10^3/uL (1.5-8.5); NEUTROPHILS % 64.6 % (36.0-66.0); PLATELET COUNT, AUTOMATED 235 10^3/uL (150-450); RED BLOOD COUNT 5.06 10^6/uL (4.00-5.40)
--- NOTE | 2019-10-03 15:17 | REPVR ---
PROCEDURE INFORMATION: Exam: XR Chest, 2 Views Exam date and time: 10/03/2019 3:06 PM Age: 28 years old Clinical indication: Cough; Additional info: Abdominal pain TECHNIQUE: Imaging protocol: XR of the chest Views: 2 views. COMPARISON: CR Chest, 2 view PA, Lat 07/26/2019 4:41 PM FINDINGS: Lungs: Unremarkable. No consolidation. Pleural space: Unremarkable. No pleural effusion. No pneumothorax. Heart/Mediastinum: Unremarkable. No cardiomegaly. Bones/joints: Unremarkable. IMPRESSION: No acute findings. Electronically signed by: Jasmina Garcia On 10/03/2019 15:17:50 PM
[2019-10-03 15:32] LABS: ACETAMINOPHEN LEVEL < 2.0 UG/ML (10.0-30.0); ALT/SGPT 18 U/L (12-78); BILIRUBIN,DIRECT < 0.1 MG/DL (0.0-0.2); BILIRUBIN,TOTAL 0.3 MG/DL (0.2-1.0); BLOOD UREA NITROGEN 7 MG/DL (7-18); CARBON DIOXIDE LEVEL 27 MEQ/L (21-32); CHLORIDE LEVEL 108 MEQ/L (98-107); CK-MB VALUE MASS 1.2 NG/ML (<3.6); CPK CREATINE PHOSPHOKINASE 123 U/L (26-192); CREATININE FOR GFR 0.72 MG/DL (0.55-1.30); ETHYL ALCOHOL (ETHANOL) 0.005 % (0.000-0.010); GLOMERULAR FILTRATION RATE > 60.0 (>60); GLUCOSE, FASTING 83 MG/DL (70-100); LIPASE 88 U/L (73-393); MB/CK RELATIVE INDEX 0.98 (< OR =4); POTASSIUM SERUM 3.8 MEQ/L (3.5-5.1); SALICYLATE LEVEL 4.6 MG/DL (5.0-30.0); SODIUM LEVEL 141 MEQ/L (136-145); TROPONIN I < 0.02 NG/ML (< 0.10)
[2019-10-03 16:14] LABS: AMPHETAMINES LEVEL URINE NEGATIVE (NEGATIVE); BARBITURATES URINE NEGATIVE (NEGATIVE); BENZODIAZEPINES URINE NEGATIVE (NEGATIVE); CANNABINOIDS URINE POSITIVE (NEGATIVE); COCAINE METABOLITE URINE NEGATIVE (NEGATIVE); METHADONE URINE NEGATIVE (NEGATIVE); OPIATES URINE NEGATIVE (NEGATIVE); PHENCYCLIDINE URINE NEGATIVE (NEGATIVE)
[2019-10-03 17:15] VITALS: BP 116/61
--- NOTE | 2019-10-17 14:18 | ECGEPIP ---
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
== END 2019-10-03 17:25 | disposition home or self-care (01) ==
LOC: M ED 13:04
DX: R53.81 Other malaise (principal); R53.83 Other fatigue; I10 Essential (primary) hypertension; J44.9 Chronic obstructive pulmonary disease, unspecified; F17.200 Nicotine dependence, unspecified, uncomplicated
CPT/HCPCS: 70450; 71046; 80048; 80076; 80307; 81001; 82375; 82550; 82553; 82803; 83605; 83690; 85025; 93005; 93041; 96361; 96374; 99284; G0480; J2405

== ENCOUNTER 2019-10-21 17:17 | Emergency (ER) | payer OTHER ==
[~2019-10-21] VITALS: Ht 157.5 cm; Wt 97.6 kg
[2019-10-21 17:17] VITALS: BP 145/85
[2019-10-21] MEDS ORDERED: ACET325C5 PO (17:25)
[2019-10-21] MEDS ORDERED: CLAR5TAB7 PO (18:10)
[2019-10-21] MEDS ORDERED: PROAAER10 INH (18:11)
--- NOTE | 2019-10-21 18:22 | REPVR ---
PROCEDURE INFORMATION: Exam: XR Chest, 2 Views Exam date and time: 10/21/2019 5:40 PM Age: 28 years old Clinical indication: Cough; Additional info: Cold SX TECHNIQUE: Imaging protocol: XR of the chest Views: 2 views. COMPARISON: CR Chest, 2 view PA, Lat 10/03/2019 2:55 PM FINDINGS: Lungs: Unremarkable. No consolidation. Pleural space: Unremarkable. No pleural effusion. No pneumothorax. Heart/Mediastinum: Unremarkable. No cardiomegaly. Bones/joints: Unremarkable. IMPRESSION: No acute findings. Electronically signed by: Alexsander Higgins On 10/21/2019 18:22:22 PM
== END 2019-10-21 18:17 | disposition home or self-care (01) ==
LOC: M ED 17:17
DX: B34.9 Viral infection, unspecified (principal); I51.9 Heart disease, unspecified; E11.9 Type 2 diabetes mellitus without complications; I10 Essential (primary) hypertension; J45.909 Unspecified asthma, uncomplicated; F17.200 Nicotine dependence, unspecified, uncomplicated; Z79.899 Other long term (current) drug therapy; Z88.5 Allergy status to narcotic agent; Z91.040 Latex allergy status

== ENCOUNTER → 2020-02-06 | Outpatient (CLI) | payer OTHER ==
[~2020-02-06] MED LIST changes: +ACET325C5 PO; +CLAR5TAB7 PO
[2020-02-06 11:00] LABS: ALT/SGPT 22 U/L (12-78); BILIRUBIN,TOTAL 0.5 MG/DL (0.2-1.0); BLOOD UREA NITROGEN 8 MG/DL (7-18); CARBON DIOXIDE LEVEL 29 MEQ/L (21-32); CHLORIDE LEVEL 105 MEQ/L (98-107); GLOMERULAR FILTRATION RATE > 60.0 (>60); GLUCOSE, FASTING 82 MG/DL (70-100); SODIUM LEVEL 140 MEQ/L (136-145); TOTAL PROTEIN 7.2 GM/DL (6.4-8.2)
[2020-02-06 11:02] LABS: CORTISOL AM 10.7 UG/DL (4.3-22.4)
== END ==
LOC: M PLALAB 09:04
PROVIDERS: ATTEND Nurse Practitioner Family
DX: R63.5 Abnormal weight gain (principal)

== ENCOUNTER → 2020-02-07 | Outpatient (CLI) | payer OTHER | LOC: M LABSMTC 14:16 | PROVIDERS: ATTEND Family Medicine | DX: Z20.828 Contact with and (suspected) exposure to other viral communicable diseases (principal) ==

== ENCOUNTER → 2020-04-27 | Outpatient (REF) | payer OTHER | LOC: M LAB REF 19:16 | PROVIDERS: ATTEND Physician Assistant Medical | DX: J02.9 Acute pharyngitis, unspecified (principal) ==

== ENCOUNTER → 2020-07-04 | Outpatient (CLI) | payer OTHER ==
[~2020-07-04] MED LIST changes: +GABA-283 PO; -GABA-845 PO
== END ==
LOC: M WHC 08:42
PROVIDERS: ATTEND Family Medicine
DX: E66.01 Morbid (severe) obesity due to excess calories (principal); Z53.9 Procedure and treatment not carried out, unspecified reason

== ENCOUNTER → 2020-07-30 | Outpatient (CLI) | payer OTHER ==
--- NOTE | 2020-07-30 11:53 | REPPI ---
INDICATION: COUGH SHORTNESS OF BREATH. COMPARISON: Comparison chest x-ray is from October 21, 2019. TECHNIQUE: Two views.. FINDINGS: The lungs are well inflated and free of infiltrate. The pleural angles are sharp. The heart size is normal. Pulmonary vasculature is not increased. No significant bony abnormality is seen. IMPRESSION: Negative chest x-ray. <Electronically signed by Blas Recinos > 07/30/20 [id number]
== END ==
LOC: M PLALAB 11:12 → M PLAIMG 11:12
PROVIDERS: ATTEND Physician Assistant
DX: R05 Cough (principal); R06.02 Shortness of breath

== ENCOUNTER → 2020-08-22 | Outpatient (REF) | payer OTHER | LOC: M SFHCPLAZ 10:02 | PROVIDERS: ATTEND Family Medicine | DX: E55.9 Vitamin D deficiency, unspecified (principal); Z86.39 Personal history of other endocrine, nutritional and metabolic disease; Z13.1 Encounter for screening for diabetes mellitus; Z13.220 Encounter for screening for lipoid disorders; Z53.9 Procedure and treatment not carried out, unspecified reason ==

== ENCOUNTER → 2020-09-19 | Outpatient (CLI) | payer OTHER ==
[~2020-09-19] MED LIST changes: +E-Z-GAS II EFFERVESCENT PACKET (SODIUM BICARB./CITRIC ACID/SIMETHICONE) As Ordered ONE; +E-Z-HD 98% w/w 340GM SUSP BTL As Ordered ONE; +E-Z-PAQUE 96% w/w SUSP 176GM BTL As Ordered ONE
--- NOTE | 2020-09-19 09:47 | REP ---
INDICATION: DIFFICULTY SWALLOWING, HX THYROID DISEASE- X-RAY FIRST. COMPARISON: None. TECHNIQUE: Routine thyroid ultrasound FINDINGS: The right lobe measures 4.4 x 2 x 1 4 cm. The echo pattern is normal. No nodules. Left lobe measures 4.8 x 1.7 x 1.4 cm. The echo pattern is normal. No nodules. IMPRESSION: Normal thyroid ultrasound. <Electronically signed by Jamie Xiao > 09/19/20 0943
--- NOTE | 2020-09-19 16:25 | REP ---
INDICATION: DIFFICULTY SWALLOWING, HX THYROID DISEASE- US AFTER. COMPARISON: None. TECHNIQUE: This procedure was performed under the direct supervision of Dr. Recinos. Images were reviewed with Dr. Recinos. Liquid barium and gas producing granules were given in the erect position as well as liquid barium in the prone oblique positions in order to perform a double contrast esophagram examination. A combination of fluoroscopy, spot films and last image hold technology was utilized. 0.5 minutes of fluoro time was utilized for this procedure. FINDINGS: A single view PA chest x-ray is submitted as a modeler film. The superior mediastinal structures are midline. The heart size is within normal limits. The lungs are clear. The oral and pharyngeal stages of deglutition are unremarkable. Esophageal transport is prompt and efficient and there is no esophagitis, stricture, mucosal ring, or hiatal hernia.Gastroesophageal reflux is not demonstrated on this examination. IMPRESSION: Essentially unremarkable double-contrast esophagram examination. <Electronically signed by Gordon Ceballos > 09/19/20 1437 <Electronically signed by Blas Recinos > 09/19/20 1627
== END ==
LOC: M RAD 09:00
PROVIDERS: ATTEND Family Medicine
DX: R22.1 Localized swelling, mass and lump, neck (principal); Z80.8 Family history of malignant neoplasm of other organs or systems

== ENCOUNTER → 2021-03-02 | Outpatient (CLI) | payer OTHER ==
[~2021-03-02] MED LIST changes: -E-Z-GAS II EFFERVESCENT PACKET (SODIUM BICARB./CITRIC ACID/SIMETHICONE) As Ordered ONE; -E-Z-HD 98% w/w 340GM SUSP BTL As Ordered ONE; -E-Z-PAQUE 96% w/w SUSP 176GM BTL As Ordered ONE; -VERA120T4 PO; +VERA120T71 PO
== END ==
LOC: M PLAIMG 12:08
PROVIDERS: ATTEND Student in an Organized Health Care Education/Training Program
DX: R09.89 Other specified symptoms and signs involving the circulatory and respiratory systems (principal)

== ENCOUNTER 2021-04-01 12:17 | Emergency (ER) | payer OTHER ==
[~2021-04-01] VITALS: Ht 157.5 cm; Wt 77.1 kg
[2021-04-01 12:17] VITALS: BP 117/63
[2021-04-01] MEDS ORDERED: AMOX875T2 (12:36)
[2021-04-01] MEDS ORDERED: ACETAMINOPHEN 325 MG/10.15 ML UDC PO ONE (13:05)
[2021-04-01] MEDS ORDERED: NS 1,000 ML IV ONE (13:10)
[2021-04-01 13:28] LABS: BASO % 0.3 % (0.0-1.0); EOS # 0.1 10^3/uL (0.0-0.5); EOS % 0.5 % (0.0-3.0); HEMATOCRIT 43.9 % (36.0-47.0); HEMOGLOBIN 14.6 g/dl (12.0-15.5); LYMPH # 1.2 10^3/uL (1.5-5.0); MEAN CORPUSCULAR HEMOGLOBIN 28.9 pg (27.0-33.0); MEAN CORPUSCULAR HGB CONC 33.3 g/dl (32.0-36.5); MEAN CORPUSCULAR VOLUME 86.9 fl (80.0-96.0); MONO # 0.8 10^3/uL (0.0-0.8); MONO % 7.7 % (2.0-8.0); NEUTROPHILS # 8.6 10^3/uL (1.5-8.5); NEUTROPHILS % 80.2 % (36.0-66.0); PLATELET COUNT, AUTOMATED 220 10^3/uL (150-450); RED BLOOD COUNT 5.05 10^6/uL (4.00-5.40); WHITE BLOOD COUNT 10.8 10^3/uL (4.0-10.0)
[2021-04-01 13:57] LABS: ERYTHROCYTE SEDIMENTATION RATE 54 mm/hr (0-20)
[2021-04-01] MEDS ORDERED: ISOVUE-370 76% 100ML VIAL As Ordered ONE (14:25)
[2021-04-02] MEDS ORDERED: IBUP200C33 PO (21:50)
[2021-04-03] MEDS ORDERED: ISOVUE-370 76% 100ML VIAL As Ordered ONE (00:44)
== END 2021-04-01 18:53 | disposition left against medical advice (07) ==
LOC: M ED 12:17
DX: R07.0 Pain in throat (principal); Z53.9 Procedure and treatment not carried out, unspecified reason; F17.200 Nicotine dependence, unspecified, uncomplicated; F12.10 Cannabis abuse, uncomplicated; Z88.5 Allergy status to narcotic agent; Z91.040 Latex allergy status
CPT/HCPCS: 80047; 83605; 84702; 85025; 85652; 86140; 87040; 96360; 99283; Q9967

== ENCOUNTER 2021-04-02 21:29 | Emergency (ER) | payer OTHER ==
[~2021-04-02] VITALS: Ht 157.5 cm; Wt 77.3 kg
[~2021-04-02 21:29] MED LIST changes: +AMOX875T2
[2021-04-02 21:30] VITALS: BP 127/62
[2021-04-02] MEDS ORDERED: IBUP200C33 PO (21:50)
[2021-04-02] MEDS ORDERED: AMPICILLIN SOD/SULBACTAM SOD 3 GM in D5W MINI-BAG PLUS 100 ML IV ONE (23:55)
[2021-04-02] MEDS ORDERED: dexameTHASONE 20MG/5ML VIAL (J1100 PER 1MG) IV ONE (23:55)
[2021-04-02] MEDS ORDERED: ACETAMINOPHEN 500 MG TAB PO ONE (23:55)
[2021-04-02] MEDS ORDERED: NS 1,000 ML IV ONE (23:55)
[2021-04-03 00:30] LABS: BASO % 0.2 % (0.0-1.0); EOS # 0.1 10^3/uL (0.0-0.5); EOS % 0.6 % (0.0-3.0); HEMATOCRIT 37.4 % (36.0-47.0); HEMOGLOBIN 12.9 g/dl (12.0-15.5); LYMPH # 1.9 10^3/uL (1.5-5.0); LYMPH % 22.1 % (24.0-44.0); MEAN CORPUSCULAR HEMOGLOBIN 29.1 pg (27.0-33.0); MEAN CORPUSCULAR HGB CONC 34.5 g/dl (32.0-36.5); MEAN CORPUSCULAR VOLUME 84.2 fl (80.0-96.0); MONO # 0.6 10^3/uL (0.0-0.8); MONO % 7.3 % (2.0-8.0); NEUTROPHILS # 5.9 10^3/uL (1.5-8.5); NEUTROPHILS % 69.7 % (36.0-66.0); PLATELET COUNT, AUTOMATED 211 10^3/uL (150-450); RED BLOOD COUNT 4.44 10^6/uL (4.00-5.40); WHITE BLOOD COUNT 8.4 10^3/uL (4.0-10.0)
[2021-04-03 00:40] LABS: MONO SCRN NEGATIVE (NEGATIVE)
[2021-04-03 00:41] LABS: BLOOD UREA NITROGEN 8 MG/DL (7-18); C REACTIVE PROTEIN QUANTITATIV 7.97 MG/DL (0.00-0.30); CALCIUM LEVEL 8.7 MG/DL (8.5-10.1); CARBON DIOXIDE LEVEL 23 MEQ/L (21-32); CHLORIDE LEVEL 107 MEQ/L (98-107); CREATININE FOR GFR 0.51 MG/DL (0.55-1.30); GLOMERULAR FILTRATION RATE > 60.0 (>60); GLUCOSE, FASTING 84 MG/DL (70-100); POTASSIUM SERUM 3.7 MEQ/L (3.5-5.1); SODIUM LEVEL 137 MEQ/L (136-145)
[2021-04-03 00:48] LABS: ERYTHROCYTE SEDIMENTATION RATE 57 mm/hr (0-20)
[2021-04-03] MEDS ORDERED: PRED20TA PO (01:48)
[2021-04-03] MEDS ORDERED: ONDA4TAB6 PO (01:48)
[2021-04-03] MEDS ORDERED: ONDANSETRON 4MG/2ML VIAL IV ONE (01:50)
== END 2021-04-03 02:13 | disposition home or self-care (01) ==
LOC: M ED 21:29
DX: J03.90 Acute tonsillitis, unspecified (principal); E11.9 Type 2 diabetes mellitus without complications; I10 Essential (primary) hypertension; J45.909 Unspecified asthma, uncomplicated; F41.9 Anxiety disorder, unspecified; F32.9 Major depressive disorder, single episode, unspecified; G43.909 Migraine, unspecified, not intractable, without status migrainosus; F17.200 Nicotine dependence, unspecified, uncomplicated; F12.10 Cannabis abuse, uncomplicated; Z88.5 Allergy status to narcotic agent; Z91.040 Latex allergy status
CPT/HCPCS: 70491; 80048; 83605; 85025; 85652; 86140; 86308; 87880; 96365; 96366; 96375; 99283; J1100; J2405

== ENCOUNTER → 2021-04-15 | Outpatient (CLI) | payer OTHER ==
[~2021-04-15] MED LIST changes: +IBUP200C33 PO; +ONDA4TAB6 PO
[2021-04-15 10:55] LABS: BASO % 0.4 % (0.0-1.0); EOS # 0.2 10^3/uL (0.0-0.5); EOS % 3.1 % (0.0-3.0); HEMATOCRIT 44.3 % (36.0-47.0); HEMOGLOBIN 14.8 g/dl (12.0-15.5); LYMPH # 2.3 10^3/uL (1.5-5.0); LYMPH % 34.1 % (24.0-44.0); MEAN CORPUSCULAR HEMOGLOBIN 29.2 pg (27.0-33.0); MEAN CORPUSCULAR HGB CONC 33.4 g/dl (32.0-36.5); MEAN CORPUSCULAR VOLUME 87.5 fl (80.0-96.0); MONO # 0.5 10^3/uL (0.0-0.8); MONO % 6.8 % (2.0-8.0); NEUTROPHILS # 3.8 10^3/uL (1.5-8.5); NEUTROPHILS % 55.3 % (36.0-66.0); PLATELET COUNT, AUTOMATED 333 10^3/uL (150-450); RED BLOOD COUNT 5.06 10^6/uL (4.00-5.40); WHITE BLOOD COUNT 6.8 10^3/uL (4.0-10.0)
[2021-04-15 11:23] LABS: ERYTHROCYTE SEDIMENTATION RATE 11 mm/hr (0-20)
[2021-04-15 11:25] LABS: BLOOD UREA NITROGEN 7 MG/DL (7-18); CARBON DIOXIDE LEVEL 28 MEQ/L (21-32); CHLORIDE LEVEL 106 MEQ/L (98-107); CREATININE FOR GFR 0.65 MG/DL (0.55-1.30); GLOMERULAR FILTRATION RATE > 60.0 (>60); GLUCOSE, FASTING 79 MG/DL (70-100); MAGNESIUM LEVEL 2.3 MG/DL (1.8-2.4); PHOSPHORUS LEVEL 3.3 MG/DL (2.5-4.9); POTASSIUM SERUM 4.7 MEQ/L (3.5-5.1); SODIUM LEVEL 137 MEQ/L (136-145)
== END ==
LOC: M PLALAB 08:58
PROVIDERS: ATTEND Student in an Organized Health Care Education/Training Program
DX: R19.7 Diarrhea, unspecified (principal)

== ENCOUNTER → 2021-04-17 | Outpatient (REF) | payer OTHER ==
[2021-04-17 11:53] LABS: CLOSTRIDIUM DIFFICILE PCR NEGATIVE (NEGATIVE)
== END ==
LOC: M SFHCPLAZ 09:15
PROVIDERS: ATTEND Student in an Organized Health Care Education/Training Program
DX: R19.7 Diarrhea, unspecified (principal)

== ENCOUNTER → 2021-09-28 | Outpatient (CLI) | payer OTHER, MEDICAID | LOC: M PLAIMG 11:12 | PROVIDERS: ATTEND Student in an Organized Health Care Education/Training Program | DX: R20.0 Anesthesia of skin (principal); K58.0 Irritable bowel syndrome with diarrhea ==

== ENCOUNTER → 2021-12-03 | Outpatient (CLI) | payer OTHER, MEDICAID ==
[2021-12-03 18:14] LABS: BASO % 0.3 % (0.0-1.0); EOS # 0.1 10^3/uL (0.0-0.5); EOS % 1.1 % (0.0-3.0); HEMATOCRIT 40.5 % (36.0-47.0); HEMOGLOBIN 13.3 g/dl (12.0-15.5); LYMPH # 1.8 10^3/uL (1.5-5.0); LYMPH % 17.4 % (24.0-44.0); MEAN CORPUSCULAR HEMOGLOBIN 29.8 pg (27.0-33.0); MEAN CORPUSCULAR HGB CONC 32.8 g/dl (32.0-36.5); MEAN CORPUSCULAR VOLUME 90.8 fl (80.0-96.0); MONO # 0.5 10^3/uL (0.0-0.8); MONO % 4.8 % (2.0-8.0); PLATELET COUNT, AUTOMATED 272 10^3/uL (150-450); RED BLOOD COUNT 4.46 10^6/uL (4.00-5.40); WHITE BLOOD COUNT 10.6 10^3/uL (4.0-10.0)
[2021-12-03 18:54] LABS: ERYTHROCYTE SEDIMENTATION RATE 6 mm/hr (0-20)
[2021-12-03 19:24] LABS: HEMOGLOBIN A1c 5.1 %
[2021-12-03 20:02] LABS: BLOOD UREA NITROGEN 8 MG/DL (7-18); CALCIUM LEVEL 8.8 MG/DL (8.5-10.1); CARBON DIOXIDE LEVEL 26 MEQ/L (21-32); CHLORIDE LEVEL 106 MEQ/L (98-107); CREATININE FOR GFR 0.77 MG/DL (0.55-1.30); FREE T4 1.05 NG/DL (0.76-1.46); GLOMERULAR FILTRATION RATE > 60.0 (>60); GLUCOSE, FASTING 71 MG/DL (70-100); SODIUM LEVEL 137 MEQ/L (136-145); TOTAL 25(OH) VITAMIN D 20.5 NG/ML (30.0-100.0); VITAMIN B12 LEVEL 283 PG/ML (247-911)
== END ==
LOC: M PLALAB 15:40
PROVIDERS: ATTEND Student in an Organized Health Care Education/Training Program
DX: I95.9 Hypotension, unspecified (principal); R42 Dizziness and giddiness; R10.84 Generalized abdominal pain